=== PATIENT | male | born 1945 | race Caucasian/White ===

== ENCOUNTER → 2018-06-28 09:11 | Outpatient (CLI) | payer OTHER, SELFPAY ==
[2018-06-28 10:02] LABS: Appearance Urine UA CLEAR; Bilirubin Urine UA NEGATIVE (NEGATIVE); Color Urine UA YELLOW; Glucose Urine UA NEGATIVE (Negative); Ketones Urine UA NEGATIVE (NEGATIVE); Leukocyte Esterase Urine UA NEGATIVE (NEGATIVE); Nitrite Urine UA NEGATIVE (Negative); Occult Blood Urine UA NEGATIVE (Negative); Protein Urine UA NEGATIVE (Negative); Specific Gravity Urine UA 1.025 (1.000-1.035); Urobilinogen Urine UA 0.2 E.U./dL (0.2)
[2018-06-28 10:17] LABS: Add Manual Diff / Slide Review NO; Basophils Absolute Auto 0 /uL (0-100); Basophils Percent Auto 0.5 % (0-2); Eosinophils Absolute Auto 100 /uL (0-450); Hematocrit 49.2 % (41-53); Hemoglobin 16.2 g/dL (13.5-17.5); Lymphocytes Absolute Auto 1500 /uL (1100-4500); Lymphocytes Percent Auto 33.4 % (25-40); Mean Corpuscular HGB Conc 32.9 % (30-36); Mean Corpuscular Hemoglobin 30.3 PG (26-34); Mean Corpuscular Volume 92.2 fL (80-100); Monocytes Absolute Auto 600 /uL (0-900); Monocytes Percent Auto 13.1 % (3-14); Neutrophils Absolute Auto 2300 /uL (1500-7000); Platelet Count 238 X10^3/uL (150-400); Red Blood Cell Count 5.33 X10^6/uL (4.5-5.9); Red Cell Distribution Width 12.9 % (11.6-14.8); White Blood Cell Count 4.6 X10^3/uL (4.5-11.0)
[2018-06-28 10:24] LABS: Alanine Aminotransferase 33 IU/L (21-72); Albumin 4.3 g/dL (3.5-5.0); Albumin Globulin Ratio 1.4 (1.0-2.8); Alkaline Phosphatase 63 U/L (38-126); Aspartate Aminotransferase 33 IU/L (17-59); BUN Creatinine Ratio 13.3 (6-22); Bilirubin Total 0.7 mg/dL (0.2-1.3); Blood Urea Nitrogen 12 mg/dL (9-20); Calcium 8.9 mg/dL (8.4-10.2); Carbon Dioxide 29 mmol/L (22-32); Chloride 103 mmol/L (98-107); Cholesterol 204 mg/dL (140-199); Estimated Glomerular Filt Rate > 60.0 mL/min (>60); Glucose 91 mg/dL (80-110); HDL Cholesterol 51 mg/dL (40-60); HEMOLYSIS < 15 (0-50); LDL Cholesterol Calculated 107 mg/dL (<100); Potassium 4.5 mmol/L (3.4-5.1); Sodium 139 mmol/L (137-145); Total Protein 7.3 g/dL (6.3-8.2); Triglycerides 230 mg/dL (35-150)
[2018-06-28 10:47] LABS: Prostate Specific Antigen Scrn 10.3 ng/mL (0.1-4.0)
[2018-06-28 11:10] LABS: Thyroid Stimulating Hormone 0.98 uIU/mL (0.47-4.68)
== END ==
PROVIDERS: Visit Provider Family Medicine
DX: Z00.00 Encounter for general adult medical examination without abnormal findings (principal); N52.9 Male erectile dysfunction, unspecified
CPT/HCPCS: 36415; 80053; 80061; 81003; 84443; 85025; G0103

== ENCOUNTER → 2018-09-12 10:28 | Outpatient (CLI) | payer OTHER, SELFPAY ==
--- NOTE | 2018-09-12 10:30 | DI.MRI.S_ITS ---
PROCEDURE: MR KNEE LT WO CON INDICATIONS: Medial left knee pain TECHNIQUE: Noncontrast sagittal PD fast spin echo and T2 fast spin echo with fat saturation, sagittal 3-D FLASH with fat saturation; coronal T1 spin echo and PD fast spin echo with fat saturation, and axial PD fast spin echo with fat saturation through the knee. COMPARISON: None. FINDINGS: Image quality: Excellent. Menisci: Linear oblique high T2 signal intensity traverses the posterior horn medial meniscal free edge, demonstrating superior and inferior articular surface extension, indicating radial tearing. Lateral meniscus is intact. Cruciate ligaments: The anterior and posterior cruciate ligaments appear intact. Medial structures: The medial collateral ligament appears intact, but demonstrates mild surrounding T2 signal elevation. Visualized portions of the pes anserinus tendons appear normal. No abnormal bursal fluid. Lateral structures: The lateral collateral ligament, long and short heads of the biceps femoris tendon appear intact. The popliteus tendon appears normal. Iliotibial band appears normal. Anterior structures: The quadriceps and patellar tendons appear intact. Patellar alignment is normal. No femoral trochlear dysplasia or ventral trochlear prominence. No edema in the infrapatellar fat pad. Bones and cartilage: No bone marrow contusions or fractures. Mild tricompartmental periarticular osteophyte formation. Mild ill-defined degenerative marrow edema within the medial tibial plateau weightbearing aspect posteriorly is present. Moderate diffuse articular cartilage loss overlies the weightbearing aspect of the medial femoral condyle and medial tibial plateau. 5 mm diameter region of moderate grade articular cartilage loss overlies the medial patellar apex. Joint space: There is physiologic knee joint fluid. No Gonzalez's cyst. Normal appearing synovial plicae are incidentally noted. IMPRESSION: 1. Tricompartmental osteoarthritis with associated articular cartilage loss. 2. Medial meniscal tear. 3. MCL strain. Dictated by: Elayne Freeman M.D. on 09/12/2018 at 12:52 Approved by: Elayne Freeman M.D. on 09/12/2018 at 12:58
== END ==
PROVIDERS: Visit Provider Nurse Practitioner
DX: M17.12 Unilateral primary osteoarthritis, left knee (principal); S83.242A Other tear of medial meniscus, current injury, left knee, initial encounter; S83.412A Sprain of medial collateral ligament of left knee, initial encounter; M25.562 Pain in left knee
CPT/HCPCS: 73721

== ENCOUNTER 2018-10-25 10:53 | Outpatient (RCR) | payer OTHER, SELFPAY ==
--- NOTE | 2018-10-25 12:35 | PT.OIE ---
Current Diagnoses Other meniscus derangements, other medial meniscus, left knee (10/25/18) Pain in left knee (10/25/18) Past Medical History (Last Reviewed 05/08/18 @ 16:47 by Anju Manriquez DO) Chickenpox (Resolved ~1956) Colon polyps (Resolved 2014) Depression (Chronic 2009) Elevated PSA (Chronic 2015) Hernia (Resolved ~2013) Kidney stones (Resolved 11/2016) Osteoarthritis (Chronic 2013) Psoriasis (Chronic 1956) Psoriatic arthritis (Chronic Unknown) Past Surgical History (Last Updated 09/01/17 @ 09:50 by Li Crooks LPN) History of tonsillectomy (1967) Status post appendectomy (1955) Status post hernia repair (07/2014) Visit Care Team Role Provider Type Anju Manriquez DO Primary Care Provider Physician Specialty: [facility] Address: [address] [place] [address], [address], [address] Email: [email or web address] HORTENSIA Butler Attending Provider Advanced Chemistry Intern Specialty: [facility] Address: [address] [place] [address], [address] Email: [email or web address] Physical Therapy Initial Evaluation PT-OP-A Visit Information Start: 10/25/18 12:14 Freq: Status: Active Protocol: Document 10/25/18 11:15 DCW (Rec: 10/25/18 12:33 [facility] [id number]) Out-Patient Physical Therapy Visit Information Visit Information Visit Type Initial Evaluation Visit Start Time 11:15 Visit Stop Time 12:15 Total Visit Minutes 60 Visit Number 1 Number of [employer] WAFERS TESTER Visits 0 Evaluation Information Evaluation Date 10/25/18 PT-OP-B Current Condition Start: 10/25/18 12:14 Freq: Status: Active Protocol: Document 10/25/18 11:15 DCW (Rec: 10/25/18 12:33 [facility] [id number]) Current Condition History of Current Condition Onset Date 2 months Current Complaints Left meniscus tear History of Current Condition Pt is a 73 year old male presenting ~2 months s/p left meniscus tear. Pt reports that he was living on a friend's sailboat for about 3.5 weeks over the summer, and it was moored a little farther from the dock than it should have been, and he was just jumping down onto the dock every day, until he began to get a lot of pain in his left knee. An MRI revealed a left medial meniscus tear and MCL sprain. Pt reports he saw an orthopedic surgeon, who recommended no surgery due to OA in the area, but pt received a Cortisone injection . Pt now reports he has not had any pain in the past month , since the injection. Pt did notice a little discomfort trying to sleep last night with lower leg rotation, but if feeling better this morning . Pt notes he is in excellent physical condition, but is curious if PT could help him quicken his healing or he could improve his strength. Prior Treatments and Tests MRI: 1. Tricompartmental osteoarthritis with associated articular cartilage loss. 2. Medial meniscal tear. 3. MCL strain. per: Elayne Freeman M.D. on 07/2018 Prior Functional Status Baseline Function- ADL's Independent Baseline Function- Mobility Independent PT-OP-C Subjective Start: 10/25/18 12:14 Freq: Status: Active Protocol: Document 10/25/18 11:15 DCW (Rec: 10/25/18 12:33 DCW [id number]) OP-PT Subjective Patient Comments Patient Comments I haven't really had any pain since my cortisone injection. Patient Reported Progress Improving Patient Questionnaires Lower Extremity Functional Scale LEFS Score 72/80 = 90% LEFS Impairment 1 to 19% Impaired (Score 63-79 ) PT-OP-F Manual Assessment Start: 10/25/18 12:14 Freq: Status: Active Protocol: Document 10/25/18 11:15 DCW (Rec: 10/25/18 12:33 DCW [id number]) Manual Assessments Soft Tissue Assessment Soft Tissue Mobility Assessment No noticable edema, inflammation, redness, or tenderness to palpation PT-OP-K Range of Motion Start: 10/25/18 12:34 Freq: Status: Active Protocol: Document 10/25/18 11:15 DCW (Rec: 10/25/18 12:35 DCW [id number]) Knee Goniometric Range of Motion Knee Right Knee ROM WFL Yes Left Knee ROM WFL Yes PT-OP-L Special Tests Start: 10/25/18 12:14 Freq: Status: Active Protocol: Document 10/25/18 11:15 DCW (Rec: 10/25/18 12:33 DCW [id number]) Special Tests Knee Special Tests Varus- 0 Degrees Test Results Negative Posterior Draw Test Results Negative Anterior Draw Test Results Negative Valgus- 0 Degrees Test Results Mild discomfort along L MCL Patella Tap Test Results Negative PT-OP-M Strength Start: 10/25/18 12:34 Freq: Status: Active Protocol: Document 10/25/18 11:15 DCW (Rec: 10/25/18 12:35 DCW [id number]) Hip Strength Hip Manual Muscle Testing Right Flexion (L2) 5 Normal Extension (S1) 5 Normal Abduction 5 Normal Adduction 5 Normal External Rotation 5 Normal Internal Rotation 5 Normal Left Flexion (L2) 5 Normal Extension (S1) 5 Normal Abduction 5 Normal Adduction 5 Normal External Rotation 5 Normal Internal Rotation 5 Normal Knee Strength Knee Manual Muscle Testing Right Flexion (S2) 5 Normal Extension (L3) 5 Normal Left Flexion (S2) 5 Normal Extension (L3) 5 Normal PT-OP-T Assessment and Plan Start: 10/25/18 12:14 Freq: Status: Active Protocol: Document 10/25/18 11:15 DCW (Rec: 10/25/18 12:33 DCW [id number]) Physical Therapy Assessment Rehab Potential Rehabilitation Potential Poor Evaluation Complexity Number of Personal Factors/Comorbidities 0 Number of Body Systems Impaired 1-2 Clinical Presentation at Evaluation Stable Assessment Summary Assessment Pt displays no deficits or impairments at this time. Pt shows mild discomfort with valgus test at MCL, but no other testing revealed any other positive results. Due to the MRI, pt's meniscus was not tested, and he clearly has a tear, however it is not causing any difficulty for him at this time. There is no indication that pt would benefit from skilled PT. Pt admits that he is impatient, and he knows it will take some time. Pt's strength is 5/5 in all areas, ROM is completely WNL. Therapist was agreeable to not discharge patient quite yet, in case his cortisone injection wears off, and he suddenly as deficits and is limited in some activities due to pain. Physical Therapy Plan Frequency and Duration Frequency of Treatment 2x/Week Duration of Treatment 3 months Plan of Care Start Date 10/25/18 Plan of Care End Date 01/23/19 Therapeutic Interventions Therapeutic Interventions Aquatic Therapy,Home Exercise Program,Joint Mobilizations, Soft Tissue Mobilization, Therapeutic Exercises Next Visit Focus/Plan Next Note Type Treatment Note Next Visit Plan Retest for deficits and limitations if pt returns after his cortisone wears off
--- NOTE | 2018-10-25 12:36 | PT.OPPOC ---
Current Diagnoses Other meniscus derangements, other medial meniscus, left knee (10/25/18) Pain in left knee (10/25/18) Visit Care Team Role Provider Type Anju Manriquez DO Primary Care Provider Physician Specialty: [facility] Address: [address] [place] [address], [address], [address] Email: [email or web address] HORTENSIA Butler Attending Provider Advanced Document Scanner Specialty: [facility] Address: [address] [place] [address], [id number] Email: [email or web address] Plan Of Care PT-OP-T Assessment and Plan Start: 10/25/18 12:14 Freq: Status: Active Protocol: Document 10/25/18 11:15 DCW (Rec: 10/25/18 12:33 DCW [id number]) Physical Therapy Assessment Rehab Potential Rehabilitation Potential Poor Evaluation Complexity Number of Personal Factors/Comorbidities 0 Number of Body Systems Impaired 1-2 Clinical Presentation at Evaluation Stable Assessment Summary Assessment Pt displays no deficits or impairments at this time. Pt shows mild discomfort with valgus test at MCL, but no other testing revealed any other positive results. Due to the MRI, pt's meniscus was not tested, and he clearly has a tear, however it is not causing any difficulty for him at this time. There is no indication that pt would benefit from skilled PT. Pt admits that he is impatient, and he knows it will take some time. Pt's strength is 5/5 in all areas, ROM is completely WNL. Therapist was agreeable to not discharge patient quite yet, in case his cortisone injection wears off, and he suddenly as deficits and is limited in some activities due to pain. Physical Therapy Plan Frequency and Duration Frequency of Treatment 2x/Week Duration of Treatment 3 months Plan of Care Start Date 10/25/18 Plan of Care End Date 01/23/19 Therapeutic Interventions Therapeutic Interventions Aquatic Therapy,Home Exercise Program,Joint Mobilizations, Soft Tissue Mobilization, Therapeutic Exercises Next Visit Focus/Plan Next Note Type Treatment Note Next Visit Plan Retest for deficits and limitations if pt returns after his cortisone wears off Plan of Care Dates Plan of Care Start Date 10/25/18 Plan of Care End Date 01/23/19
--- NOTE | 2018-11-28 15:06 | PT.OPDS ---
Current Diagnoses Other meniscus derangements, other medial meniscus, left knee (10/25/18) Pain in left knee (10/25/18) Visit Care Team Role Provider Type Anju Manriquez DO Primary Care Provider Physician Specialty: [facility] Address: [address] [place] [address], [address], [place], [address] Email: [email or web address] HORTENSIA Butler Attending Provider Advanced Plant Controls Specialist Specialty: [facility] Address: [address] [place] [address], [address] Email: [email or web address] Visit Number Visit Number 1 Discharge Summary PT-OP-B Current Condition Start: 10/25/18 12:14 Freq: Status: Active Protocol: Document 10/25/18 11:15 DCW (Rec: 10/25/18 12:33 DCW [id number]) Current Condition History of Current Condition Onset Date 2 months Current Complaints Left meniscus tear History of Current Condition Pt is a 73 year old male presenting ~2 months s/p left meniscus tear. Pt reports that he was living on a friend's sailboat for about 3.5 weeks over the summer, and it was moored a little farther from the dock than it should have been, and he was just jumping down onto the dock every day, until he began to get a lot of pain in his left knee. An MRI revealed a left medial meniscus tear and MCL sprain. Pt reports he saw an orthopedic surgeon, who recommended no surgery due to OA in the area, but pt received a Cortisone injection . Pt now reports he has not had any pain in the past month , since the injection. Pt did notice a little discomfort trying to sleep last night with lower leg rotation, but if feeling better this morning . Pt notes he is in excellent physical condition, but is curious if PT could help him quicken his healing or he could improve his strength. Prior Treatments and Tests MRI: 1. Tricompartmental osteoarthritis with associated articular cartilage loss. 2. Medial meniscal tear. 3. MCL strain. per: Elayne Freeman M.D. on 07/2018 Prior Functional Status Baseline Function- ADL's Independent Baseline Function- Mobility Independent PT-OP-C Subjective Start: 10/25/18 12:14 Freq: Status: Active Protocol: Document 10/25/18 11:15 DCW (Rec: 10/25/18 12:33 DCW [id number]) OP-PT Subjective Patient Comments Patient Comments I haven't really had any pain since my cortisone injection. Patient Reported Progress Improving Patient Questionnaires Lower Extremity Functional Scale LEFS Score 72/80 = 90% LEFS Impairment 1 to 19% Impaired (Score 63-79 ) PT-OP-F Manual Assessment Start: 10/25/18 12:14 Freq: Status: Active Protocol: Document 10/25/18 11:15 DCW (Rec: 10/25/18 12:33 DCW [id number]) Manual Assessments Soft Tissue Assessment Soft Tissue Mobility Assessment No noticable edema, inflammation, redness, or tenderness to palpation PT-OP-K Range of Motion Start: 10/25/18 12:34 Freq: Status: Active Protocol: Document 10/25/18 11:15 DCW (Rec: 10/25/18 12:35 DCW [id number]) Knee Goniometric Range of Motion Knee Right Knee ROM WFL Yes Left Knee ROM WFL Yes PT-OP-L Special Tests Start: 10/25/18 12:14 Freq: Status: Active Protocol: Document 10/25/18 11:15 DCW (Rec: 10/25/18 12:33 DCW [id number]) Special Tests Knee Special Tests Varus- 0 Degrees Test Results Negative Posterior Draw Test Results Negative Anterior Draw Test Results Negative Valgus- 0 Degrees Test Results Mild discomfort along L MCL Patella Tap Test Results Negative PT-OP-M Strength Start: 10/25/18 12:34 Freq: Status: Active Protocol: Document 10/25/18 11:15 DCW (Rec: 10/25/18 12:35 DCW [id number]) Hip Strength Hip Manual Muscle Testing Right Flexion (L2) 5 Normal Extension (S1) 5 Normal Abduction 5 Normal Adduction 5 Normal External Rotation 5 Normal Internal Rotation 5 Normal Left Flexion (L2) 5 Normal Extension (S1) 5 Normal Abduction 5 Normal Adduction 5 Normal External Rotation 5 Normal Internal Rotation 5 Normal Knee Strength Knee Manual Muscle Testing Right Flexion (S2) 5 Normal Extension (L3) 5 Normal Left Flexion (S2) 5 Normal Extension (L3) 5 Normal PT-OP-T Assessment and Plan Start: 10/25/18 12:14 Freq: Status: Active Protocol: Document 11/28/18 15:04 DCW (Rec: 11/28/18 15:06 [facility] [id number]) Physical Therapy Assessment Assessment Summary Assessment At pt's initial evaluation, he demonstrated no impairments, deficits, or problems of any kind. Therapist was agreeable to keep his chart open for one month, on the off-chance that he ran into any problems or had questions/concerns. Pt has now not been seen in more than one month, and will be discharged at this time. Physical Therapy Plan Discharge Physical Therapy Discharge Reasons No Longer Attending PT Next Visit Focus/Plan Next Note Type Discharge Summary
== END 2018-12-06 16:27 | disposition home or self-care (01) ==
LOC: PHYS 10:53
PROVIDERS: PCP Family Medicine; Visit Provider Nurse Practitioner
DX: M25.562 Pain in left knee (principal); M23.332 Other meniscus derangements, other medial meniscus, left knee
CPT/HCPCS: 97161; 97535

== ENCOUNTER → 2019-06-13 10:48 | Outpatient (CLI) | payer OTHER, SELFPAY ==
[2019-06-14 07:44] LABS: PSA Free % 21.8 % (.); PSA, Total 8.7 ng/mL (0.0-4.0)
== END ==
PROVIDERS: PCP Family Medicine; Referring Provider Physician Assistant; Visit Provider Physician Assistant
DX: R97.20 Elevated prostate specific antigen [PSA] (principal); R68.82 Decreased libido
CPT/HCPCS: 36415; 84153; 84154

== ENCOUNTER 2019-08-28 11:38 | Emergency (ER) | payer OTHER, SELFPAY ==
[2019-08-28 12:00] VITALS: BP 173/85; PULSE 61; RESP 18; TEMP 36.7; O2SAT 99; BMI 28.0
[2019-08-28 13:35] VITALS: BP 185/90; PULSE 58; RESP 14; O2SAT 98
--- NOTE | 2019-08-28 13:43 | ED.LOWEXIN ---
HPI - Extremity Injury (Lower) <HORTENSIA De Souza - Last Filed: 08/28/19 15:21> General Chief Complaint: Extremity Injury, Lower Stated Complaint: Drop Barrel of Cadillac Chain on Rt Toe Time Seen by Provider: 08/28/19 12:51 Source: patient Mode of arrival: Ambulatory Limitations: no limitations History of Present Illness HPI Narrative: 74-year-old male presents to the emergency department for right 1st toe pain. Patient states he was moving a barrel and drop it on his right big toe. He states there was a large anger chain inside which weighed approximately few 100 lb. Patient states he had some pain initially which resolved with ice and elevation. He has been able to walk on it without significant pain. He noticed a slight amount of increasing pain today. Patient denies throbbing or pain. Patient denies any other injuries such as foot pain, ankle pain, head trauma, fevers, chills, nausea, vomiting, diarrhea, or any other concerns. Patient refused x-ray. Related Data Home Medications Medication Instructions Recorded Confirmed omega 0-sth-fyy-fish oil [Fish Oil] 1,000 mg PO #0 11/26/16 03/30/19 cholecalciferol (vitamin D3) #0 05/20/17 03/30/19 magnesium #0 05/20/17 03/30/19 L-citruline 500 mg PO DAILY 05/08/18 03/30/19 Panex Ginseng Root Extract 300 mg PO DAILY 05/08/18 03/30/19 jeff extract 500 mg capsule 1,500 cap PO DAILY cap 05/08/18 03/30/19 red yeast rice 600 mg capsule 600 mg PO DAILY 05/08/18 03/30/19 Previous Rx's Medication Instructions Recorded pneumoc 13-constantine conj-dip cr(PF) 0.5 0.5 ml IM ONCE #0.5 ml 05/08/18 mL IM syringe sildenafil 100 mg tablet 100 mg PO DAILY PRN #90 tab 05/08/18 tadalafil 20 mg tablet 20 mg PO DAILY PRN #90 tab 05/08/18 amoxicillin 875 mg-potassium 1 tab PO BID #20 tab 03/30/19 clavulanate 125 mg tablet Allergies Allergy/AdvReac Type Severity Reaction Status Date / Time No Known Allergies Allergy Uncoded 03/30/19 11:05 Review of Systems <HORTENSIA De Souza - Last Filed: 08/28/19 15:21> Review of Systems Narrative: REVIEW OF SYSTEMS: GENERAL: Denies fever or chills. HENT: No head trauma. EYES: No double vision or vision loss. CARDIOVASCULAR: No chest pain. RESPIRATORY: No shortness of breath or cough. GASTROINTESTINAL: No nausea, vomiting, diarrhea, or constipation. MUSCULOSKELETAL: Complains of R 1st toe pain, see HPI. INTEGUMENTARY: No rash. NEURO: No numbness, tingling. PSYCH: No behavior or mood changes. Patient History <HORTENSIA De Souza - Last Filed: 08/28/19 15:21> Medical History Chickenpox (Resolved ~1956) Colon polyps (Resolved 2014) Depression (Chronic 2009) Elevated PSA (Chronic 2015) Hernia (Resolved ~2013) Kidney stones (Resolved 11/2016) Osteoarthritis (Chronic 2013) Psoriasis (Chronic 1956) Psoriatic arthritis (Chronic Unknown) Sinusitis (Acute) Surgical History History of tonsillectomy (1967) Status post appendectomy (1955) Status post hernia repair (07/2014) Family History Father Hyperlipidemia Mother Cancer Social History Smoking Status: Never smoker Smoking Status: Never smoker alcohol intake frequency: 0-2 drinks per day Alcohol type: wine Substance Use Type: does not use Exam <HORTENSIA De Souza - Last Filed: 08/28/19 15:21> Initial Vital Signs Initial Vital Signs: Vital Signs Temperature 98.1 F 08/28/19 12:00 Pulse Rate 61 08/28/19 12:00 Respiratory Rate 18 08/28/19 12:00 Blood Pressure 173/85 H 08/28/19 12:00 Pulse Oximetry 99 08/28/19 12:00 PHYSICAL EXAMINATION: GENERAL: Well groomed, alert, and cooperative. Answers questions promptly and appropriately. Vital signs noted. HENT: Normocephalic, atraumatic. EYES: Symmetrical, sclera white, no periorbital swelling. CARDIOVASCULAR: Regular rate. RESPIRATORY: Normal respiratory rate, trachea midline, airway patent. No stridor, nasal flaring or accessory muscle use. MUSCULOSKELETAL: Mild swelling and ecchymosis noted to tip of right 1st toe. Very minimal tenderness. No pain with palpation of nail, large subungual hematoma without pain. No pain with palpation of foot or ankle. Normal gait and coordination. Equal tone and mass bilaterally. EXTREMITIES: CMS intact. Pedal pulses 2+ and intact bilaterally. SKIN: Warm, dry, soft, appropriate color for ethnicity. No lesions, rashes, or wounds. NEURO: Alert and Oriented X 3. No sensory deficits. PSYCH: Appropriate affect and mood. <Justus Fernandez MD - Last Filed: 08/28/19 18:49> Initial Vital Signs Initial Vital Signs: Vital Signs Temperature 98.1 F 08/28/19 12:00 Pulse Rate 61 08/28/19 12:00 Respiratory Rate 18 08/28/19 12:00 Blood Pressure 173/85 H 08/28/19 12:00 Pulse Oximetry 99 08/28/19 12:00 Course <HORTENSIA De Souza - Last Filed: 08/28/19 15:21> Course Course Narrative: Discussed with patient that x-rays recommended, declined at this time. Vital Signs Vital signs: Vital Signs - 8 hr 08/28/19 12:00 08/28/19 13:35 Temperature 98.1 F Pulse Rate 61 58 L Respiratory Rate 18 14 Blood Pressure 173/85 H 185/90 H Pulse Oximetry 99 98 <Justus Fernandez MD - Last Filed: 08/28/19 18:49> Vital Signs Vital signs: Vital Signs - 8 hr 08/28/19 12:00 08/28/19 13:35 Temperature 98.1 F Pulse Rate 61 58 L Respiratory Rate 18 14 Blood Pressure 173/85 H 185/90 H Pulse Oximetry 99 98 MDM - Extremity Injury (Lower) <HORTENSIA De Souza - Last Filed: 08/28/19 15:21> Medical Records Attestation: I reviewed the patient's medical records. Lab Data Attestation: I reviewed the patient's lab results. [facility] Narrative Medical decision making narrative: 74-year-old male presents emergency department for toe pain after dropping an object, toe. Patient refused x-ray multiple times. Denies significant pain, denies pain with significant pressure on nail therefore trepidation not indicated. Additionally, it looks like some of the fluid exudates from the nail. Patient was given strict return precautions for new or worsening symptoms. Patient could find care verbalized understanding. Discharge Plan Departure Patient Disposition: Home Clinical Impression: Crush injury of toe Qualifiers: Encounter type: initial encounter Laterality: right Qualified Code(s): S97.101A - Crushing injury of unspecified right toe(s), initial encounter Discharge Date/Time: 08/28/19 13:36 Instructions: DI for Subungual Hematoma Activity Restrictions/Additional Instructions: Thank you for entrusting me with your care today. As discussed, you declined an x-ray today to rule out any fractures as your pain has been mild. It is possible that you may lose your nail due to the trauma. Please keep your toe protected in stiff she used, monitor the toe for signs of infection such as pus, increased redness, or increased pain--please be evaluated immediately if these symptoms occur. Protect your toe if your nail does fall off. Watch for signs of an ingrown toenail. Follow-up with your primary care provider in 1-2 weeks for further evaluation if symptoms continue Return emergency department for any new or worsening symptoms.. Prescriptions: No Action red yeast rice 600 mg capsule 600 mg PO DAILY RF: 0 jeff extract 500 mg capsule 1,500 cap PO DAILY RF: 0 L-citruline 500 mg PO DAILY RF: 0 Panex Ginseng Root Extract 300 mg PO DAILY RF: 0 Prevnar 13 (PF) 0.5 mL syringe 0.5 ml IM ONCE Qty: 0.5 RF: 0 sildenafil [Viagra] 100 mg tablet 100 mg PO DAILY PRN (Reason: sexual activity) Qty: 90 RF: 0 tadalafil [Cialis] 20 mg tablet 20 mg PO DAILY PRN (Reason: sexual activity) Qty: 90 RF: 0 amoxicillin-pot clavulanate [Augmentin] 875-125 mg tablet 1 tab PO BID Qty: 20 RF: 0 omega 9-yzl-uif-fish oil [Fish Oil] 1,000 MG capsule 1,000 mg PO Qty: 0 RF: 0 magnesium 200 MG tablet Qty: 0 RF: 0 cholecalciferol (vitamin D3) 5,000 UNIT capsule Qty: 0 RF: 0 Referrals: Declan,Anju, DO [Primary Care Provider] -
== END 2019-08-28 13:36 | disposition home or self-care (01) ==
PROVIDERS: Emergency Provider Nurse Practitioner; PCP Family Medicine
DX: S97.101A Crushing injury of unspecified right toe(s), initial encounter (principal); W22.8XXA Striking against or struck by other objects, initial encounter
CPT/HCPCS: 99281

== ENCOUNTER → 2019-09-28 11:33 | Outpatient (CLI) | payer OTHER, SELFPAY ==
--- NOTE | 2019-09-28 12:26 | DI.CT.S_ITS ---
PROCEDURE: CT CHEST ABD PEL W CON INDICATIONS: Malignant neoplasm of prostate TECHNIQUE: After the administration of oral and intravenous contrast, 5 mm thick sections acquired from the lung apices to the symphysis. 5 mm coronal and sagittal reformats were performed, with additional 7 mm coronal MIP reformats through the lungs. For radiation dose reduction, the following was used: automated exposure control, adjustment of mA and/or kV according to patient size. COMPARISON: [facility], CT, KIDNEY/ URETER/BLADDER, 11/26/2016, 18:09. FINDINGS: Image quality: Excellent. CHEST: Lungs and pleura: No acute airspace opacities. No mass or significant pulmonary nodules. A few small cysts in the left lower lobe. No pleural effusions or pneumothorax. Central and peripheral airways appear patent and normal in caliber. Mediastinum: Heart size is normal. No pericardial effusion. No mediastinal or hilar adenopathy by size criteria. Thoracic aorta and central pulmonary arteries are normal in size. Esophagus is normal in caliber. No hiatal hernia. Chest wall: No axillary or supraclavicular adenopathy by size criteria. Thyroid gland is unremarkable. ABDOMEN: Solid organs: Liver is normal in size and enhancement. Gallbladder is unremarkable. Biliary system is non dilated. Pancreas enhances normally. Spleen is normal in size and enhancement. No adrenal nodules. Kidneys demonstrate normal size and enhancement, without hydronephrosis. No kidney stone seen. Peritoneum and bowel: No small bowel obstruction. Thickening of the distal sigmoid colon which appears similar to the prior exam from 2017. Diverticulosis. No diverticulitis. Appendix is not identified. No free fluid. No pneumoperitoneum. Nodes and vessels: No retroperitoneal or mesenteric adenopathy by size criteria. Aorta and inferior vena cava are normal in size. Miscellaneous: No ventral hernias. PELVIS: Genitourinary: Bladder is unremarkable. Prostatomegaly. Subtle asymmetric contour abnormality at the right mid gland/apex. Small varicosities in the left pelvis. Right internal iliac vein is somewhat patulous. Bilateral hydroceles which were also present in 2017. Miscellaneous: Small fat containing left inguinal hernia. No adenopathy identified. Bones: No suspicious bony lesions. No sclerotic osseous lesion. No vertebral body compression fractures. IMPRESSION: 1. No metastatic disease identified. No enlarged adenopathy. 2. No sclerotic osseous lesions. 3. Again seen is thickening of the distal sigmoid colon. This could be due to prior episodes of diverticulitis. Recommend clinical correlation. If clinically indicated further evaluation with colonoscopy could be performed. 4. Diverticulosis without diverticulitis. No free fluid. 5. Lungs are clear. Dictated by: Bryan Mckeon M.D. on 09/28/2019 at 13:47 Approved by: Bryan Mckeon M.D. on 09/28/2019 at 13:59
== END ==
PROVIDERS: PCP Family Medicine; Referring Provider Urology; Visit Provider Urology
DX: C61 Malignant neoplasm of prostate (principal); K57.90 Diverticulosis of intestine, part unspecified, without perforation or abscess without bleeding
CPT/HCPCS: 71260; 74177; Q9967

== ENCOUNTER → 2020-01-31 09:43 | Outpatient (CLI) | payer OTHER, MEDICARE, SELFPAY ==
[2020-01-31 10:09] LABS: Hemoglobin A1C% w Est Avg Glu 5.4 % (4.0-6.0)
[2020-01-31 10:13] LABS: Cholesterol 239 mg/dL (140-199); HDL Cholesterol 34 mg/dL (40-60); LDL Cholesterol Calculated 144 mg/dL (<100); Triglycerides 303 mg/dL (35-150)
[2020-01-31 10:45] LABS: Prostate Specific Antigen Scrn 9.15 ng/mL (0.1-4.0)
[2020-01-31 11:01] LABS: HIV 1 & 2 Ab/Ag 4th Gen Combo NEGATIVE (NEGATIVE)
[2020-01-31 11:29] LABS: Urine N gonorrhoeae NOT DETECTED
[2020-01-31 11:30] LABS: Urine Chlamydia NOT DETECTED
[2020-02-01 04:15] LABS: HBsAg Screen Negative (Negative); Hepatitis A Antibody IgM Negative (Negative); Hepatitis B Core Antibody IgM Negative (Negative); Hepatitis C Antibody <0.1 s/co ratio (0.0-0.9)
[2020-02-01 06:07] LABS: RPR Screen Non Reactive (Non Reactive)
== END ==
PROVIDERS: PCP Family Medicine; Referring Provider Family Medicine; Visit Provider Family Medicine
DX: E78.5 Hyperlipidemia, unspecified (principal); C61 Malignant neoplasm of prostate; Z12.5 Encounter for screening for malignant neoplasm of prostate
CPT/HCPCS: 36415; 80061; 80074; 83036; 86592; 87389; 87491; 87591; G0103

== ENCOUNTER → 2020-02-06 08:02 | Outpatient (CLI) | payer OTHER, MEDICARE, SELFPAY ==
--- NOTE | 2020-02-06 08:06 | DI.US.S_ITS ---
PROCEDURE: US ABDOMEN LIMITED INDICATIONS: LEFT INGUINAL BULGING TECHNIQUE: Real-time scanning was performed of the abdominal and retroperitoneal organs, with image documentation. COMPARISON: [facility], CT, CT CHEST ABD PEL W CON, 09/28/2019, 12:23. FINDINGS: There is a reducible left inguinal fat containing hernia. IMPRESSION: Reducible fat containing left inguinal hernia. Dictated by: Sheryl Vásquez M.D. on 02/06/2020 at 15:02 Approved by: Sheryl Vásquez M.D. on 02/06/2020 at 15:04
== END ==
PROVIDERS: PCP Family Medicine; Referring Provider Family Medicine; Visit Provider Family Medicine
DX: K40.90 Unilateral inguinal hernia, without obstruction or gangrene, not specified as recurrent (principal)
CPT/HCPCS: 76705

== ENCOUNTER → 2020-03-06 11:00 | Outpatient (CLI) | payer MEDICARE, SELFPAY ==
[2020-03-06] MEDS: COVID-19 VACC #1, MRNA(MOD) 100 MCG/0.5 ML VIAL IM (11:05)
== END ==
PROVIDERS: PCP Family Medicine; Visit Provider Internal Medicine
DX: Z23 Encounter for immunization (principal)
CPT/HCPCS: 0011A; 91301

== ENCOUNTER → 2020-04-03 11:11 | Outpatient (CLI) | payer MEDICARE, SELFPAY ==
[2020-04-03] MEDS: COVID-19 VACC #2, MRNA(MOD) 100 MCG/0.5 ML VIAL IM (11:13)
== END ==
PROVIDERS: PCP Family Medicine; Visit Provider Internal Medicine
DX: Z23 Encounter for immunization (principal)
CPT/HCPCS: 0012A; 91301

== ENCOUNTER → 2020-08-14 09:39 | Outpatient (CLI) | payer MEDICARE, OTHER, SELFPAY ==
[2020-08-14 11:47] LABS: Alanine Aminotransferase 36 IU/L (<50); Albumin 4.1 g/dL (3.5-5.0); Albumin Globulin Ratio 1.5 (1.0-2.8); Alkaline Phosphatase 53 U/L (38-126); Aspartate Aminotransferase 35 IU/L (17-59); BUN Creatinine Ratio 18.8 (6-22); Bilirubin Total 0.7 mg/dL (0.2-1.3); Blood Urea Nitrogen 15 mg/dL (9-20); Calcium 9.4 mg/dL (8.4-10.2); Carbon Dioxide 26 mmol/L (22-32); Chloride 108 mmol/L (98-107); Cholesterol 157 mg/dL (140-199); Estimated Glomerular Filt Rate > 60.0 mL/min (>60); Globulin 2.7 g/dL (1.7-4.1); Glucose 111 mg/dL (80-110); HDL Cholesterol 53 mg/dL (40-60); HEMOLYSIS < 15 (0-50); LDL Cholesterol Calculated 79 mg/dL (<100); Potassium 4.5 mmol/L (3.4-5.1); Sodium 139 mmol/L (137-145); Total Protein 6.8 g/dL (6.3-8.2); Triglycerides 127 mg/dL (35-150)
[2020-08-14 12:16] LABS: Prostate Specific Antigen Scrn 7.89 ng/mL (0.1-4.0)
[2020-08-21 11:59] LABS: Percent Free Testosterone 3.79 % (1.50-4.20); Testosterone Free 16.63 ng/dL (5.00-21.00); Testosterone Total 438.9 ng/dL (264.0-916.0)
== END ==
PROVIDERS: PCP Family Medicine; Referring Provider Family Medicine; Visit Provider Family Medicine
DX: C61 Malignant neoplasm of prostate (principal); E78.5 Hyperlipidemia, unspecified; Z12.5 Encounter for screening for malignant neoplasm of prostate; N20.0 Calculus of kidney; N52.9 Male erectile dysfunction, unspecified
CPT/HCPCS: 36415; 80053; 80061; 84402; 84403; G0103

== ENCOUNTER → 2020-08-26 15:00 | Outpatient (CLI) | payer MEDICARE, OTHER, SELFPAY ==
--- NOTE | 2020-08-26 15:05 | DI.RAD.S_ITS ---
PROCEDURE: XR WRIST LT MIN 3V INDICATIONS: left wrist pain TECHNIQUE: 4 views of the wrist were acquired. COMPARISON: None. FINDINGS: Bones: No fractures or dislocations. No suspicious bony lesions. Scaphoid view: No trauma. Soft tissues: No suspicious soft tissue calcifications. IMPRESSION: No trauma found. Dictated by: Ramin Sheets M.D. on 08/26/2020 at 16:35 Approved by: Ramin Sheets M.D. on 08/26/2020 at 16:35
== END ==
PROVIDERS: PCP Family Medicine; Referring Provider Family Medicine; Visit Provider Family Medicine
DX: S63.502A Unspecified sprain of left wrist, initial encounter (principal); M25.532 Pain in left wrist; X58.XXXA Exposure to other specified factors, initial encounter
CPT/HCPCS: 73110

== ENCOUNTER → 2020-10-08 08:43 | Outpatient (CLI) | payer MEDICARE, OTHER, SELFPAY ==
[2020-10-08 13:37] LABS: COVID19 -Nasal RAPID Negative (Negative)
== END ==
PROVIDERS: PCP Family Medicine; Visit Provider Nurse Practitioner
DX: Z01.812 Encounter for preprocedural laboratory examination (principal); Z20.822 Contact with and (suspected) exposure to COVID-19; R05 Cough
CPT/HCPCS: 87635

== ENCOUNTER 2020-11-27 14:15 | Outpatient (RCR) | payer MEDICARE, OTHER, SELFPAY ==
--- NOTE | 2020-09-29 16:55 | PT.OIE ---
Current Diagnoses Carpal tunnel syndrome, left upper limb (09/29/20) Pain in left wrist (09/29/20) Past Medical History (Last Updated 08/21/20 @ 11:05 by Justin Foley MD) Carpal tunnel syndrome of left wrist Chickenpox (~1956) Colon polyps (2014) Depression (2010) Elevated PSA (2015) Hernia (~2013) Kidney stones (11/2016) Osteoarthritis (2013) Prostate cancer Psoriasis (1956) Psoriatic arthritis (Unknown) Sinusitis Past Surgical History (Last Reviewed 01/31/20 @ 09:07 by Justin Foley MD) History of tonsillectomy (1967) Status post appendectomy (1955) Status post hernia repair (07/2014) Visit Care Team Role Provider Type Justin Foley MD Attending Provider Physician Primary Care Provider Referring Provider Specialty: Family Practice Address: [address] [place] [address] Email: [email or web address] Physical Therapy Initial Evaluation PT-OP-A Visit Information Start: 09/26/20 11:54 Freq: Status: Active Protocol: Document 09/29/20 14:28 LRN (Rec: 09/29/20 16:46 LRN [id number]) Out-Patient Physical Therapy Visit Information Visit Information Visit Type Initial Evaluation Visit Start Time 14:28 Visit Stop Time 15:26 Total Visit Minutes 58 Visit Number 1 Evaluation Information Evaluation Date 09/29/20 Precautions Precautions History of depression History of sensation changes in R hand after nighttime sleeping. Osteoarthritis of hands. 2 Prostate Biopsies, both benign (09/2019, 07/2020). PT-OP-B Current Condition Start: 09/26/20 11:54 Freq: Status: Active Protocol: Document 09/29/20 14:28 LRN (Rec: 09/29/20 16:46 LRN [id number]) Current Condition History of Current Condition Onset Date 08/10/20 Current Complaints Can't feel his hand. History of Current Condition L hand was almost severed. L hand was compressed by metal by a boat raz assembly pressing his hand into his boat. 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 No broken bones. Was able to move hand, no blood, only couldn't feel hand but could tell he could move his L hand. Has been elevating his hand, has been using cold pack for swelling, and heat to stimulate blood flow. Went to see his doctor a couple weeks after injury. Has been doing hand yoga, keeping his hands/ fingers moving. His L little finger and ring finger was numb, now he can feel his little finger and the lateral side of his ring finger. Index & middle finger is numb, thumb lateral side is starting to tingle, medial and thumb pad side is numb. Has a history of numbness of R hand while sleeping that has worsened since injury. Now feels under the biceps is burning. Prior Treatments and Tests None. Future Testing and Treatments Planned None Treatment Goals Patient/Caregiver Goals Pt goal: is to find out what he should be doing to help progress his L hand to normal. Learn what specific things he should be doing that he is not doing to speed up healing process. Improve ability to use his fingers to zip up pants and button his shirt. 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 Current Functional Impairments (Reported) Functional Limitations- ADL's Can't zip pants or button shirt because can't feel index finger (no pain in fingers). Limited with anything that requires use of thumb/ forefinger (brushing teeth) is awkward. Functional Limitations- Work/School Working FT, awkward with doing detail work, like writing ( can write but not able to feel ). Personal Factors Other Personal Factors That May Effect Depression Therapy/Recovery History of sensation changes in R hand after nighttime sleeping. Osteoarthritis of hands. 2 Prostate Biopsies, both benign (09/2019, 07/2020). PT-OP-C Subjective Start: 09/26/20 11:54 Freq: Status: Active Protocol: Document 09/29/20 14:28 LRN (Rec: 09/29/20 16:46 LRN [id number]) Patient Questionnaires Quick Dash- Upper Extremity Quick Dash UE Score 27.27 Quick Dash UE Impairment 20 to 39% Impaired (Score 20- 39) PT-OP-H Neuro Start: 09/26/20 11:54 Freq: Status: Active Protocol: Document 09/29/20 14:28 LRN (Rec: 09/29/20 16:46 LRN [id number]) Sensation Evaluation Gross Sensation Gross Sensation Left UE Impaired Sensation Description Numbness,Tingling Comments Summary Comments See Pain assessment Grid that pt noted decreased sensation vs numbness (sectioins of the median nerve distribution). PT-OP-J Posture/Palpation/Skin Start: 09/26/20 11:54 Freq: Status: Active Protocol: Document 09/29/20 14:28 LRN (Rec: 09/29/20 16:46 LRN [id number]) Posture Evaluation Comments Posture Comments Forward head, Winged scapula bilaterally, L shoulder rolled forward and elevated, bilaterally arms internally rotated. Palpation Assessment Location L wrist Palpation Location L wrist Palpation Findings Edema PT-OP-K Range of Motion Start: 09/26/20 11:54 Freq: Status: Active Protocol: Document 09/29/20 14:28 LRN (Rec: 09/29/20 16:46 LRN [id number]) Wrist Goniometric Range of Motion Wrist Right Wrist ROM WFL Yes Flexion Active (degrees) 70 Extension Active (degrees) 53 Ulnar Deviation Active (degrees) 28 Radial Deviation Active (degrees) 10 Left Wrist ROM WFL No Flexion Active (degrees) 70 Extension Active (degrees) 42 Ulnar Deviation Active (degrees) 17 Radial Deviation Active (degrees) 8 Finger Goniometric Range of Motion Finger Right Second MCP Flexion Active (degrees) 56 PIP Flexion Active (degrees) 96 DIP Flexion Active (70-90 degrees) 50 L Left Second MCP Flexion Active (degrees) 62 PIP Flexion Active (degrees) 88 DIP Flexion Active (70-90 degrees) 38 L Finger ROM Limitations Comments Opposition of little finger to medial side on L hand. L hand: Touch thumb to palm , yes on Right to 4th finger, Left to middle finger. PT-OP-L Special Tests Start: 09/26/20 11:54 Freq: Status: Active Protocol: Document 09/29/20 14:28 LRN (Rec: 09/29/20 16:46 LRN [id number]) Special Tests Wrist/Hand Special Tests Phalens Test Results L wrist unknown Comments L hand numb with no change in numbness Tinels Test Results L wrist is positive Comments Tingling onset PT-OP-M Strength Start: 09/26/20 11:54 Freq: Status: Active Protocol: Document 09/29/20 14:28 LRN (Rec: 09/29/20 16:46 LRN [id number]) Elbow/Forearm Strength Elbow and Forearm Manual Muscle Testing Right Comments Generally 5/5 Left Comments Generally 5/5 Wrist Strength Wrist Manual Muscle Testing Right Comments Generally 5/5 Left Comments Generally 5/5 as tested within pt's available range. Finger/Thumb Strength Finger Manual Muscle Testing Right Second Adduction 5 Normal Left Second Adduction 3 Fair Right Thumb Comments Opposition to all finger is normal. Left Thumb Comments Opposition to little finger is 3/5, otherwise 5/5 Hand Electrical Tester Battery/Pinch Strength Hand Dominance Hand Dominance Left Hand Strength Right Comments Electrical Tester Battery strength in kgs: 35, 32, 32 (avg is 33 kg) Left Comments Electrical Tester Battery strength in kgs: 26, 28, 28 (avg is 27 kg) PT-OP-Q Treatments Start: 09/26/20 11:54 Freq: Status: Active Protocol: Document 09/29/20 14:28 LRN (Rec: 09/29/20 16:46 LRN [id number]) Therapeutic Exercises Sitting Exercises Opposition Sitting Exercise Name Opposition for coordination/ speed Side bilateral Reps/Minutes 2' Comments Pt slower on L hand, and not able to touch pad of little finger (side only) Little finger flex Sitting Exercise Name Little finger flex Side left Reps/Minutes 3' Comments Training for correct performance and monitoring for symptoms L wrist ext stretch Sitting Exercise Name L wrist ext Side left Reps/Minutes 4' Comments Extra time for determining max stretch and proper stretch ( no bouncing) Self-Care/Home Management Treatment Education Other Education Discussed at length result of evaluation and answered questions regarding self care, injury and prognosis. Discussed goals and plan of care, with pt agreeable. Activities Self-Care/Home Management Activities Issued & reviewed self care: Edema management with RICE program without use of compression. Edema management using hot/cold technique PT-OP-T Assessment and Plan Start: 09/26/20 11:54 Freq: Status: Active Protocol: Document 09/29/20 14:28 LRN (Rec: 09/29/20 16:46 LRN [id number]) Physical Therapy Assessment Rehab Potential Rehabilitation Potential Excellent Evaluation Complexity Number of Personal Factors/Comorbidities 3 or More Number of Body Systems Impaired 4 or More Clinical Presentation at Evaluation Evolving Impairments Impairments Activity Tolerance, Coordination,Edema,ROM, Sensation,Strength Goals Three Impairment Decreased L hand and finger strength (see below) Impairment UE QuickDASH score of 27.27 ( 20-39% impaired) Electrical Tester Battery strength (kgs with 3 trials): 26, 28, 28 left; 35, 32, 32 right. Index finger AD: 3/5 left, 5/ 5 right. Opposition: thumb and little finger: 2+/5 left, 5/5 right. Short Term Goal (STG) Improve L hand strength with improved function per UE QuickDASH score of 19 or less with 1-19% impairment. STG Duration 10/27/20 Clerk Manager Goal (LTG) Pt able to zip pants or button shirt. LTG Duration 11/28/20 Two Impairment Decreased L wrist, index finger (PIP/DIP) AROM Impairment AROM: Wrist (in deg's): Flex: 70 L, 70 R; Ext: 42 L, 53 R; UD: 17 L, 28 R; RD: 8 L, 10 R. Index finger active flexion ( in deg's): PIP jt: 88 left, 96 right DIP jt: 38 left, 50 right. Short Term Goal (STG) Pt will be able to hold his toothbrush to brush his teeth with ease (not awkward). STG Duration 10/27/20 Clerk Manager Goal (LTG) Improve L wrist & index finger AROM LTG Duration 11/28/20 One Impairment Lacks appropriate self care HEP Short Term Goal (STG) Pt will be independent in wrist (ext, UD/RD) and finger (flex, ext, AB/AD, opposition) AROM ex's. STG Duration 10/27/20 Snf Goal (LTG) Pt will be independent in a self care HEP (AROM & strengthening ex's for the L forearm, wrist, fingers. LTG Duration 11/28/20 Assessment Summary Assessment Pt present with conflicting L carpel tunnel, special testing results, of + Tinel Sign, but negatve Phalen sign. He has a palpable strong wrist pulse indicating good circulation and denies loss of sensation between hot/cold. He has decreased sensation in the L hand to soft touch in some areaa of the median nerve distribution. Loss of sensation to soft touch most is mainly at the L index and middle finger on the archer surface of the entire digits, and in the palm below the same digits. He has no sensation to soft touch on the dorsal side of the DIP jts distally of the L middle and index finger. He also has numbness to soft touch in the palmar aspect of the L thumb. He has had tingling sensation and progressive return of sensation in the L ring and little finger. His progress may be hindered by his lack of sensation and his lack of ability to identify limitations with wrist/finger stretches and exercise tolerance. The pt will probably need a nighttime wrist splint to promote healing and to minimize wrist flexion while sleeping at night. The pt also presents with decreased L wrist AROM and visible atrophy of his left hypothenar and forearm muscles. 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 The pt will benefit from skilled physical therapy to improve L wrist/finger mobility and strengthening and forearm strengthening. If the pt is not able to progress in L hand strengthening I would recommend EMG assessment. Physical Therapy Plan Frequency and Duration Frequency of Treatment 2x/Week Plan of Care Start Date 09/29/20 Plan of Care End Date 11/28/20 Therapeutic Interventions Therapeutic Interventions Home Exercise Program,Joint Mobilizations,Manual Therapy, Patient/Caregiver Education, Self-Care/Home Management,Soft Tissue Mobilization,Taping, Therapeutic Exercises Modalities Cold Pack/Ice Massage,Hot Packs,Ultrasound Other Referrals/Consults Referrals/Consults Recommended EMG study if atrophy of L hand hypthenar, intrinsic of index /middle finger and forearm muscle strength does not respond to strengthening. Next Visit Focus/Plan Next Note Type Treatment Note Next Visit Plan Review pt's self care edema management home program. Discuss use of nighttime splint for L wrist and positioning of neck/shoulders due to prior history of R (?L) hand numbness on waking in morning. Discuss use of wrist splint for nighttime if performing excessive wrist flexion during the night. US to L carpal tunnel (possibly laser), f/b gentle stretching and start gentle isometric strengthening of forearm, monitoring for sensation changes. Assess sharp/dull sensation of hand and monitor for cold/hot and circulatory changes. Progress opposition (little finger) and 5th digit/ thumb strengthening. Compression of radial/unar interosseous during forearm ex (MWM). Ther Ex when appropriate for L forearm, wrist, hypothenar, opposition with little finger and intrinsic of index, middle and little finger.
--- NOTE | 2020-10-06 15:21 | PT-OP ANOTE ---
Per telephone conv, pt states he didn't see on his appt list an appointment for this month. He thought his PT started in Oct. Pt notified of his next appt date and time.
--- NOTE | 2020-10-09 16:17 | PT.OTN ---
Current Diagnoses Carpal tunnel syndrome, left upper limb (10/09/20) Pain in left wrist (10/09/20) Stiffness of left wrist, not elsewhere classified (10/09/20) Muscle weakness (generalized) (10/09/20) Physical Therapy Treatment Note PT-OP-A Visit Information Start: 09/26/20 11:54 Freq: Status: Active Protocol: Document 10/09/20 14:22 LRN (Rec: 10/09/20 16:16 LRN [id number]) Out-Patient Physical Therapy Visit Information Visit Information Visit Type Treatment Note Visit Start Time 14:22 Visit Stop Time 15:04 Total Visit Minutes 42 Visit Number 2 Evaluation Information Evaluation Date 09/29/20 Precautions Precautions History of depression History of sensation changes in R hand after nighttime sleeping. Osteoarthritis of hands. 2 Prostate Biopsies, both benign (09/2019, 07/2020). PT-OP-B Current Condition Start: 09/26/20 11:54 Freq: Status: Active Protocol: Document 09/29/20 14:28 LRN (Rec: 09/29/20 16:46 LRN [id number]) Current Condition History of Current Condition Onset Date 08/10/20 Current Complaints Can't feel his hand. History of Current Condition L hand was almost severed. L hand was compressed by metal by a boat raz assembly pressing his hand into his boat. 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 No broken bones. Was able to move hand, no blood, only couldn't feel hand but could tell he could move his L hand. Has been elevating his hand, has been using cold pack for swelling, and heat to stimulate blood flow. Went to see his doctor a couple weeks after injury. Has been doing hand yoga, keeping his hands/ fingers moving. His L little finger and ring finger was numb, now he can feel his little finger and the lateral side of his ring finger. Index & middle finger is numb, thumb lateral side is starting to tingle, medial and thumb pad side is numb. Has a history of numbness of R hand while sleeping that has worsened since injury. Now feels under the biceps is burning. Prior Treatments and Tests None. Future Testing and Treatments Planned None Treatment Goals Patient/Caregiver Goals Pt goal: is to find out what he should be doing to help progress his L hand to normal. Learn what specific things he should be doing that he is not doing to speed up healing process. Improve ability to use his fingers to zip up pants and button his shirt. 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. Current Functional Impairments (Reported) Functional Limitations- ADL's Can't zip pants or button shirt because can't feel index finger (no pain in fingers). Limited with anything that requires use of thumb/ forefinger (brushing teeth) is awkward. Functional Limitations- Work/School Working FT, awkward with doing detail work, like writing ( can write but not able to feel ). Personal Factors Other Personal Factors That May Effect Depression Therapy/Recovery History of sensation changes in R hand after nighttime sleeping. Osteoarthritis of hands. 2 Prostate Biopsies, both benign (09/2019, 07/2020). PT-OP-C Subjective Start: 09/26/20 11:54 Freq: Status: Active Protocol: Document 10/09/20 14:22 LRN (Rec: 10/09/20 16:16 LRN [id number]) OP-PT Subjective Patient Comments Patient Comments States he is slowly getting feeling back in the edges of the L hand. Edges are feeling tingly and prickly. L little finger still ok, ring finger except on the medial side is pretty normal. Did the hot/ cold technique. PT-OP-H Neuro Start: 09/26/20 11:54 Freq: Status: Active Protocol: Document 09/29/20 14:28 LRN (Rec: 09/29/20 16:46 LRN [id number]) Sensation Evaluation Gross Sensation Gross Sensation Left UE Impaired Sensation Description Numbness,Tingling Comments Summary Comments See Pain assessment Grid that pt noted decreased sensation vs numbness (sectioins of the median nerve distribution). PT-OP-J Posture/Palpation/Skin Start: 09/26/20 11:54 Freq: Status: Active Protocol: Document 09/29/20 14:28 LRN (Rec: 09/29/20 16:46 LRN [id number]) Posture Evaluation Comments Posture Comments Forward head, Winged scapula bilaterally, L shoulder rolled forward and elevated, bilaterally arms internally rotated. Palpation Assessment Location L wrist Palpation Location L wrist Palpation Findings Edema PT-OP-K Range of Motion Start: 09/26/20 11:54 Freq: Status: Active Protocol: Document 09/29/20 14:28 LRN (Rec: 09/29/20 16:46 LRN [id number]) Wrist Goniometric Range of Motion Wrist Right Wrist ROM WFL Yes Flexion Active (degrees) 70 Extension Active (degrees) 53 Ulnar Deviation Active (degrees) 28 Radial Deviation Active (degrees) 10 Left Wrist ROM WFL No Flexion Active (degrees) 70 Extension Active (degrees) 42 Ulnar Deviation Active (degrees) 17 Radial Deviation Active (degrees) 8 Finger Goniometric Range of Motion Finger Right Second MCP Flexion Active (degrees) 56 PIP Flexion Active (degrees) 96 DIP Flexion Active (70-90 degrees) 50 L Left Second MCP Flexion Active (degrees) 62 PIP Flexion Active (degrees) 88 DIP Flexion Active (70-90 degrees) 38 L Finger ROM Limitations Comments Opposition of little finger to medial side on L hand. L hand: Touch thumb to palm , yes on Right to 4th finger, Left to middle finger. PT-OP-L Special Tests Start: 09/26/20 11:54 Freq: Status: Active Protocol: Document 09/29/20 14:28 LRN (Rec: 09/29/20 16:46 LRN [id number]) Special Tests Wrist/Hand Special Tests Phalens Test Results L wrist unknown Comments L hand numb with no change in numbness Tinels Test Results L wrist is positive Comments Tingling onset PT-OP-M Strength Start: 09/26/20 11:54 Freq: Status: Active Protocol: Document 09/29/20 14:28 LRN (Rec: 09/29/20 16:46 LRN [id number]) Elbow/Forearm Strength Elbow and Forearm Manual Muscle Testing Right Comments Generally 5/5 Left Comments Generally 5/5 Wrist Strength Wrist Manual Muscle Testing Right Comments Generally 5/5 Left Comments Generally 5/5 as tested within pt's available range. Finger/Thumb Strength Finger Manual Muscle Testing Right Second Adduction 5 Normal Left Second Adduction 3 Fair Right Thumb Comments Opposition to all finger is normal. Left Thumb Comments Opposition to little finger is 3/5, otherwise 5/5 Hand Engine Dynamometer Tester/Pinch Strength Hand Dominance Hand Dominance Left Hand Strength Right Comments Engine Dynamometer Tester strength in kgs: 35, 32, 32 (avg is 33 kg) Left Comments Engine Dynamometer Tester strength in kgs: 26, 28, 28 (avg is 27 kg) PT-OP-Q Treatments Start: 09/26/20 11:54 Freq: Status: Active Protocol: Document 10/09/20 14:22 LRN (Rec: 10/09/20 16:16 LRN [id number]) Therapeutic Exercises Supine Exercises Wrist flex Supine Exercise Name AROM stretch while on MH to neck, Arm in supination Side left Reps/Minutes 10x 2 Wrist ext Supine Exercise Name AROM stretch while on MH to neck, Arm in pronation Side left Reps/Minutes 10x 2 Forearm sup/pron Supine Exercise Name AROM while on MH to neck Side left Reps/Minutes 10x 3 Sitting Exercises L thrum flex ARROM Sitting Exercise Name Manual self resist to neutral Side left Reps/Minutes 3' Comments Extra time for training self resistance w/caution for lack of sensation L thumb flex Sitting Exercise Name AROM Side left Reps/Minutes 15x Comments Manual assist and extra time for training of movement L thumb AB strengthening Sitting Exercise Name AROM Side left Reps/Minutes 4' Comments Much phys & v cuing needed for pt to understand how to do ex correctly. L thumb AB stretch Sitting Exercise Name PROM Side left Reps/Minutes 4' Comments Much phys & v cuing for proper stretch Opposition Sitting Exercise Name Opposition for coordination/ speed & focus ring/little finger Side left Reps/Minutes 5' Comments Not able to touch ring (side) & little finger (not able to reach) pad Self-Care/Home Management Treatment Education Patient Education Home Exercise Program,Pain Management Other Education Reviewed/discussed edema management technique for home program. Discussed use of nighttime over the counter wrist splint to limit excessive wrist flexion. Discussed use for both wrists. Pt has one from previous treatent of Dupytren' s condition on the R hand. Activities Self-Care/Home Management Activities Issued & reviewed HEP: L Thumb AB stretch f/b active AB & Stretch into L thumb flexion f/b active flexion and self manual resistive flex to neutral. PT-OP-T Assessment and Plan Start: 09/26/20 11:54 Freq: Status: Active Protocol: Document 10/09/20 14:22 LRN (Rec: 10/09/20 16:16 LRN [id number]) Physical Therapy Assessment Goals Three Impairment Decreased L hand and finger strength (see below) Impairment UE QuickDASH score of 27.27 ( 20-39% impaired) Engine Dynamometer Tester strength (kgs with 3 trials): 26, 28, 28 left; 35, 32, 32 right. Index finger AD: 3/5 left, 5/ 5 right. Opposition: thumb and little finger: 2+/5 left, 5/5 right. Short Term Goal (STG) Improve L hand strength with improved function per UE QuickDASH score of 19 or less with 1-19% impairment. STG Duration 10/27/20 Senior Care Goal (LTG) Pt able to zip pants or button shirt. LTG Duration 11/28/20 Two Impairment Decreased L wrist, index finger (PIP/DIP) AROM Impairment AROM: Wrist (in deg's): Flex: 70 L, 70 R; Ext: 42 L, 53 R; UD: 17 L, 28 R; RD: 8 L, 10 R. Index finger active flexion ( in deg's): PIP jt: 88 left, 96 right DIP jt: 38 left, 50 right. Short Term Goal (STG) Pt will be able to hold his toothbrush to brush his teeth with ease (not awkward). STG Duration 10/27/20 Construction Crew Member Goal (LTG) Improve L wrist & index finger AROM LTG Duration 11/28/20 One Impairment Lacks appropriate self care HEP Short Term Goal (STG) Pt will be independent in wrist (ext, UD/RD) and finger (flex, ext, AB/AD, opposition) AROM ex's. STG Duration 10/27/20 Construction Crew Member Goal (LTG) Pt will be independent in a self care HEP (AROM & strengthening ex's for the L forearm, wrist, fingers. LTG Duration 11/28/20 Assessment Summary Assessment Pt sensation in the L hand is returning with normal on the lateral side of the L ring finger and normal in the L little finger. + Tinel Sign. Pt lacks L thumb AB and poor ability to perform opposition with L ring & little finger. Physical Therapy Plan Frequency and Duration Frequency of Treatment 2x/Week Plan of Care Start Date 09/29/20 Plan of Care End Date 11/28/20 Next Visit Focus/Plan Next Note Type Treatment Note Next Visit Plan Discuss use of nighttime splint for L wrist and positioning of neck/shoulders due to prior history of R (?L) hand numbness on waking in morning. Discuss use of wrist splint for nighttime if performing excessive wrist flexion during the night. US to L carpal tunnel (possibly laser), f/b gentle stretching and start gentle isometric strengthening of forearm, monitoring for sensation changes. Assess sharp/dull sensation of hand and monitor for cold/hot and circulatory changes. Progress opposition (little finger) and 5th digit/ thumb strengthening. Compression of radial/unar interosseous during forearm ex (MWM). Ther Ex when appropriate for L forearm, wrist, hypothenar, opposition with little finger and intrinsic of index, middle and little finger.
--- NOTE | 2020-10-20 15:45 | PT.OTN ---
Current Diagnoses Carpal tunnel syndrome, left upper limb (10/20/20) Pain in left wrist (10/20/20) Stiffness of left wrist, not elsewhere classified (10/20/20) Muscle weakness (generalized) (10/20/20) Physical Therapy Treatment Note PT-OP-A Visit Information Start: 09/26/20 11:54 Freq: Status: Active Protocol: Document 10/20/20 13:34 LRN (Rec: 10/20/20 14:21 LRN [id number]) Out-Patient Physical Therapy Visit Information Visit Information Visit Type Treatment Note Visit Start Time 13:34 Visit Stop Time 14:18 Total Visit Minutes 44 Visit Number 3 Evaluation Information Evaluation Date 09/29/20 Precautions Precautions History of depression History of sensation changes in R hand after nighttime sleeping. Osteoarthritis of hands. 2 Prostate Biopsies, both benign (09/2019, 07/2020). PT-OP-B Current Condition Start: 09/26/20 11:54 Freq: Status: Active Protocol: Document 09/29/20 14:28 LRN (Rec: 09/29/20 16:46 LRN [id number]) Current Condition History of Current Condition Onset Date 08/10/20 Current Complaints Can't feel his hand. History of Current Condition L hand was almost severed. L hand was compressed by metal by a boat raz assembly pressing his hand into his boat. 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 No broken bones. Was able to move hand, no blood, only couldn't feel hand but could tell he could move his L hand. Has been elevating his hand, has been using cold pack for swelling, and heat to stimulate blood flow. Went to see his doctor a couple weeks after injury. Has been doing hand yoga, keeping his hands/ fingers moving. His L little finger and ring finger was numb, now he can feel his little finger and the lateral side of his ring finger. Index & middle finger is numb, thumb lateral side is starting to tingle, medial and thumb pad side is numb. Has a history of numbness of R hand while sleeping that has worsened since injury. Now feels under the biceps is burning. Prior Treatments and Tests None. Future Testing and Treatments Planned None Treatment Goals Patient/Caregiver Goals Pt goal: is to find out what he should be doing to help progress his L hand to normal. Learn what specific things he should be doing that he is not doing to speed up healing process. Improve ability to use his fingers to zip up pants and button his shirt. 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 Current Functional Impairments (Reported) Functional Limitations- ADL's Can't zip pants or button shirt because can't feel index finger (no pain in fingers). Limited with anything that requires use of thumb/ forefinger (brushing teeth) is awkward. Functional Limitations- Work/School Working FT, awkward with doing detail work, like writing ( can write but not able to feel ). Personal Factors Other Personal Factors That May Effect Depression Therapy/Recovery History of sensation changes in R hand after nighttime sleeping. Osteoarthritis of hands. 2 Prostate Biopsies, both benign (09/2019, 07/2020). PT-OP-C Subjective Start: 09/26/20 11:54 Freq: Status: Active Protocol: Document 10/20/20 13:34 LRN (Rec: 10/20/20 14:21 LRN [id number]) OP-PT Subjective Patient Comments Patient Comments States he is slowly getting. L index finger remains numb, the top part is starting to wake up. Using hand, starting to feel slightly the tactile feeling parts of L hand on the inside edges and outside parts of the hand. PT-OP-H Neuro Start: 09/26/20 11:54 Freq: Status: Active Protocol: Document 09/29/20 14:28 LRN (Rec: 09/29/20 16:46 LRN [id number]) Sensation Evaluation Gross Sensation Gross Sensation Left UE Impaired Sensation Description Numbness,Tingling Comments Summary Comments See Pain assessment Grid that pt noted decreased sensation vs numbness (sectioins of the median nerve distribution). PT-OP-J Posture/Palpation/Skin Start: 09/26/20 11:54 Freq: Status: Active Protocol: Document 09/29/20 14:28 LRN (Rec: 09/29/20 16:46 LRN [id number]) Posture Evaluation Comments Posture Comments Forward head, Winged scapula bilaterally, L shoulder rolled forward and elevated, bilaterally arms internally rotated. Palpation Assessment Location L wrist Palpation Location L wrist Palpation Findings Edema PT-OP-K Range of Motion Start: 09/26/20 11:54 Freq: Status: Active Protocol: Document 09/29/20 14:28 LRN (Rec: 09/29/20 16:46 LRN [id number]) Wrist Goniometric Range of Motion Wrist Right Wrist ROM WFL Yes Flexion Active (degrees) 70 Extension Active (degrees) 53 Ulnar Deviation Active (degrees) 28 Radial Deviation Active (degrees) 10 Left Wrist ROM WFL No Flexion Active (degrees) 70 Extension Active (degrees) 42 Ulnar Deviation Active (degrees) 17 Radial Deviation Active (degrees) 8 Finger Goniometric Range of Motion Finger Right Second MCP Flexion Active (degrees) 56 PIP Flexion Active (degrees) 96 DIP Flexion Active (70-90 degrees) 50 L Left Second MCP Flexion Active (degrees) 62 PIP Flexion Active (degrees) 88 DIP Flexion Active (70-90 degrees) 38 L Finger ROM Limitations Comments Opposition of little finger to medial side on L hand. L hand: Touch thumb to palm , yes on Right to 4th finger, Left to middle finger. PT-OP-L Special Tests Start: 09/26/20 11:54 Freq: Status: Active Protocol: Document 09/29/20 14:28 LRN (Rec: 09/29/20 16:46 LR [id number]) Special Tests Wrist/Hand Special Tests Phalens Test Results L wrist unknown Comments L hand numb with no change in numbness Tinels Test Results L wrist is positive Comments Tingling onset PT-OP-M Strength Start: 09/26/20 11:54 Freq: Status: Active Protocol: Document 09/29/20 14:28 LRN (Rec: 09/29/20 16:46 [facility] [id number]) Elbow/Forearm Strength Elbow and Forearm Manual Muscle Testing Right Comments Generally 5/5 Left Comments Generally 5/5 Wrist Strength Wrist Manual Muscle Testing Right Comments Generally 5/5 Left Comments Generally 5/5 as tested within pt's available range. Finger/Thumb Strength Finger Manual Muscle Testing Right Second Adduction 5 Normal Left Second Adduction 3 Fair Right Thumb Comments Opposition to all finger is normal. Left Thumb Comments Opposition to little finger is 3/5, otherwise 5/5 Hand Toe Laster/Pinch Strength Hand Dominance Hand Dominance Left Hand Strength Right Comments Toe Laster strength in kgs: 35, 32, 32 (avg is 33 kg) Left Comments Toe Laster strength in kgs: 26, 28, 28 (avg is 27 kg) PT-OP-Q Treatments Start: 09/26/20 11:54 Freq: Status: Active Protocol: Document 10/20/20 13:34 LRN (Rec: 10/20/20 14:21 LRN [id number]) Therapeutic Exercises Sitting Exercises Finger ext Sitting Exercise Name Finger ext (all digits) Side left Gripping Sitting Exercise Name Gripping review Side left Reps/Minutes 1' Finger AB strengthening Sitting Exercise Name Finger AB strengthening Side left Equipment Used Moderate soft Red TPutty Reps/Minutes 5 x 3 each finger group Comments Much phys & v cuing needed to determing max tolerated resistance Finger AD strengthening Sitting Exercise Name Fingers AD strengthening Side left Equipment Used Moderate soft Red TPutty Reps/Minutes 5 x 3 each finger group Comments Much phys & v cuing needed to determing max tolerated resistance Wrist UD Sitting Exercise Name Isometric strengthening (to the floor & out to side mvmt) Side left Equipment Used Lev 2 TB Reps/Minutes 10x[address] Sitting Exercise Name Isometric strengthening Side left Equipment Used Lev 2 TB Reps/Minutes 10x 3 Wrist ext strengthening Sitting Exercise Name Isometric strengthening (Elbow Curl-hand pronation) Side left Equipment Used Lev 2 TB Reps/Minutes 10x 3 Wrist flex strengthening Sitting Exercise Name Isometric strengthening (Elbow Curls-hand sup) Side left Equipment Used Lev 2 TB Reps/Minutes 10x 3 Self-Care/Home Management Treatment Education Other Education Reviewed pt posture with sleeping and wrist positioning for neutral positioning. Educated pt in proper wrist position during sleeping and discussed if there was a need for a nighttime wrist spint. Activities Self-Care/Home Management Activities Issued & reviewed HEP handouts for wrist strengthening ( isometric > concentric) and I/ S pt in finger AB/AD/Flex/Ext with use of TPutty. Issued Mod Soft Red TPutty. PT-OP-T Assessment and Plan Start: 09/26/20 11:54 Freq: Status: Active Protocol: Document 10/20/20 13:34 LRN (Rec: 10/20/20 14:21 LRN [id number]) Physical Therapy Assessment Goals Three Impairment Decreased L hand and finger strength (see below) Impairment UE QuickDASH score of 27.27 ( 20-39% impaired) Toe Laster strength (kgs with 3 trials): 26, 28, 28 left; 35, 32, 32 right. Index finger AD: 3/5 left, 5/ 5 right. Opposition: thumb and little finger: 2+/5 left, 5/5 right. Short Term Goal (STG) Improve L hand strength with improved function per UE QuickDASH score of 19 or less with 1-19% impairment. STG Duration 10/27/20 Reducing System Operator Goal (LTG) Pt able to zip pants or button shirt. LTG Duration 11/28/20 Two Impairment Decreased L wrist, index finger (PIP/DIP) AROM Impairment AROM: Wrist (in deg's): Flex: 70 L, 70 R; Ext: 42 L, 53 R; UD: 17 L, 28 R; RD: 8 L, 10 R. Index finger active flexion ( in deg's): PIP jt: 88 left, 96 right DIP jt: 38 left, 50 right. Short Term Goal (STG) Pt will be able to hold his toothbrush to brush his teeth with ease (not awkward). STG Duration 10/27/20 Intermediate Goal (LTG) Improve L wrist & index finger AROM LTG Duration 11/28/20 One Impairment Lacks appropriate self care HEP Short Term Goal (STG) Pt will be independent in wrist (ext, UD/RD) and finger (flex, ext, AB/AD, opposition) AROM ex's. (09/29/20: L Thumb AB & thumb flex passive & active stretch & manual resistive thumb flexion to neutral: 10/20/20: HEP: UD/RD, flex/ext isometrics, reviewed Fiona thumb flex, & strengthening of finger AB/AD/Flex/Ext) STG Duration 10/27/20 (10/20/20: MET GOAL) Reducing System Operator Goal (LTG) Pt will be independent in a self care HEP (AROM & strengthening ex's for the L forearm, wrist, fingers. LTG Duration 11/28/20 (10/20/20: Progressed) Progress Towards Goals Progress Comments Progressed HEP. Assessment Summary Assessment Nighttime wrist splint not needed due to good positioning of wrist at nighttime. Pt did not have any onset of pain or increased numbness or tingling of the L hand with hand/wrist exer's. Finger AD of little finger shows much weakness. Pt is apparently in neutral head positioning while sleeping. Physical Therapy Plan Frequency and Duration Frequency of Treatment 2x/Week Plan of Care Start Date 09/29/20 Plan of Care End Date 11/28/20 Next Visit Focus/Plan Next Note Type Treatment Note Next Visit Plan Add L hand opposition strengthening ex. & Putty on table strengthening. Compression of radial/unar interosseous during forearm ex (MWM) for pain or sensation changes control. ?US to L carpal tunnel (possibly laser) , f/b gentle stretching and review isometric strengthening of forearm, monitoring for sensation changes & progress to concentric strengthening. Assess sharp/dull sensation of hand and monitor for cold/hot and circulatory changes. Progress opposition (little finger) and 5th digit/thumb strengthening. Ther Ex when appropriate for L forearm, wrist, hypothenar, opposition with little finger and intrinsic of index, middle and little finger.
--- NOTE | 2020-10-24 16:34 | PT.OTN ---
Current Diagnoses Carpal tunnel syndrome, left upper limb (10/24/20) Pain in left wrist (10/24/20) Stiffness of left wrist, not elsewhere classified (10/24/20) Muscle weakness (generalized) (10/24/20) Physical Therapy Treatment Note PT-OP-A Visit Information Start: 09/26/20 11:54 Freq: Status: Active Protocol: Document 10/24/20 14:24 LRN (Rec: 10/24/20 15:09 LRN [id number]) Out-Patient Physical Therapy Visit Information Visit Information Visit Type Treatment Note Visit Start Time 14:24 Visit Stop Time 15:07 Total Visit Minutes 43 Visit Number 4 Evaluation Information Evaluation Date 09/29/20 Precautions Precautions History of depression History of sensation changes in R hand after nighttime sleeping. Osteoarthritis of hands. 2 Prostate Biopsies, both benign (09/2019, 07/2020). PT-OP-B Current Condition Start: 09/26/20 11:54 Freq: Status: Active Protocol: Document 09/29/20 14:28 LRN (Rec: 09/29/20 16:46 LRN [id number]) Current Condition History of Current Condition Onset Date 08/10/20 Current Complaints Can't feel his hand. History of Current Condition L hand was almost severed. L hand was compressed by metal by a boat raz assembly pressing his hand into his boat. 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 No broken bones. Was able to move hand, no blood, only couldn't feel hand but could tell he could move his L hand. Has been elevating his hand, has been using cold pack for swelling, and heat to stimulate blood flow. Went to see his doctor a couple weeks after injury. Has been doing hand yoga, keeping his hands/ fingers moving. His L little finger and ring finger was numb, now he can feel his little finger and the lateral side of his ring finger. Index & middle finger is numb, thumb lateral side is starting to tingle, medial and thumb pad side is numb. Has a history of numbness of R hand while sleeping that has worsened since injury. Now feels under the biceps is burning. Prior Treatments and Tests None. Future Testing and Treatments Planned None Treatment Goals Patient/Caregiver Goals Pt goal: is to find out what he should be doing to help progress his L hand to normal. Learn what specific things he should be doing that he is not doing to speed up healing process. Improve ability to use his fingers to zip up pants and button his shirt. 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 Current Functional Impairments (Reported) Functional Limitations- ADL's Can't zip pants or button shirt because can't feel index finger (no pain in fingers). Limited with anything that requires use of thumb/ forefinger (brushing teeth) is awkward. Functional Limitations- Work/School Working FT, awkward with doing detail work, like writing ( can write but not able to feel ). Personal Factors Other Personal Factors That May Effect Depression Therapy/Recovery History of sensation changes in R hand after nighttime sleeping. Osteoarthritis of hands. 2 Prostate Biopsies, both benign (09/2019, 07/2020). PT-OP-C Subjective Start: 09/26/20 11:54 Freq: Status: Active Protocol: Document 10/24/20 14:24 LRN (Rec: 10/24/20 15:09 LRN [id number]) OP-PT Subjective Patient Comments Patient Comments Feeling tingling and more in L thumb and Thenar region; therefore can button shirt easier. L middle and index finger is still numb PT-OP-H Neuro Start: 09/26/20 11:54 Freq: Status: Active Protocol: Document 09/29/20 14:28 LRN (Rec: 09/29/20 16:46 LRN [id number]) Sensation Evaluation Gross Sensation Gross Sensation Left UE Impaired Sensation Description Numbness,Tingling Comments Summary Comments See Pain assessment Grid that pt noted decreased sensation vs numbness (sectioins of the median nerve distribution). PT-OP-J Posture/Palpation/Skin Start: 09/26/20 11:54 Freq: Status: Active Protocol: Document 09/29/20 14:28 LRN (Rec: 09/29/20 16:46 LRN [id number]) Posture Evaluation Comments Posture Comments Forward head, Winged scapula bilaterally, L shoulder rolled forward and elevated, bilaterally arms internally rotated. Palpation Assessment Location L wrist Palpation Location L wrist Palpation Findings Edema PT-OP-K Range of Motion Start: 09/26/20 11:54 Freq: Status: Active Protocol: Document 09/29/20 14:28 LRN (Rec: 09/29/20 16:46 LRN [id number]) Wrist Goniometric Range of Motion Wrist Right Wrist ROM WFL Yes Flexion Active (degrees) 70 Extension Active (degrees) 53 Ulnar Deviation Active (degrees) 28 Radial Deviation Active (degrees) 10 Left Wrist ROM WFL No Flexion Active (degrees) 70 Extension Active (degrees) 42 Ulnar Deviation Active (degrees) 17 Radial Deviation Active (degrees) 8 Finger Goniometric Range of Motion Finger Right Second MCP Flexion Active (degrees) 56 PIP Flexion Active (degrees) 96 DIP Flexion Active (70-90 degrees) 50 L Left Second MCP Flexion Active (degrees) 62 PIP Flexion Active (degrees) 88 DIP Flexion Active (70-90 degrees) 38 L Finger ROM Limitations Comments Opposition of little finger to medial side on L hand. L hand: Touch thumb to palm , yes on Right to 4th finger, Left to middle finger. PT-OP-L Special Tests Start: 09/26/20 11:54 Freq: Status: Active Protocol: Document 09/29/20 14:28 LRN (Rec: 09/29/20 16:46 LRN [id number]) Special Tests Wrist/Hand Special Tests Phalens Test Results L wrist unknown Comments L hand numb with no change in numbness Tinels Test Results L wrist is positive Comments Tingling onset PT-OP-M Strength Start: 09/26/20 11:54 Freq: Status: Active Protocol: Document 09/29/20 14:28 LRN (Rec: 09/29/20 16:46 LR [id number]) Elbow/Forearm Strength Elbow and Forearm Manual Muscle Testing Right Comments Generally 5/5 Left Comments Generally 5/5 Wrist Strength Wrist Manual Muscle Testing Right Comments Generally 5/5 Left Comments Generally 5/5 as tested within pt's available range. Finger/Thumb Strength Finger Manual Muscle Testing Right Second Adduction 5 Normal Left Second Adduction 3 Fair Right Thumb Comments Opposition to all finger is normal. Left Thumb Comments Opposition to little finger is 3/5, otherwise 5/5 Hand Streetsweeper Operator/Pinch Strength Hand Dominance Hand Dominance Left Hand Strength Right Comments Streetsweeper Operator strength in kgs: 35, 32, 32 (avg is 33 kg) Left Comments Streetsweeper Operator strength in kgs: 26, 28, 28 (avg is 27 kg) PT-OP-Q Treatments Start: 09/26/20 11:54 Freq: Status: Active Protocol: Document 10/24/20 14:24 LRN (Rec: 10/24/20 15:09 N [id number]) Therapeutic Exercises Sitting Exercises Grasping/twisting Sitting Exercise Name Grasp/twist of granger bag Reps/Minutes 5' L pronation stretch Sitting Exercise Name L pronation stretch f/b active stretch Side left Equipment Used Hammer AND without hammer Reps/Minutes 10'' Comments Much phys cuing needed for self stretch. Forearm sup/pronation Sitting Exercise Name Sup/Pron with Hammer head on Ulnar side and radial side Side left Reps/Minutes 30x each Comments Cuing to find best tolerated position for holding hammer Wrist UD Sitting Exercise Name Arom strengthening (to the floor & out to side mvmt) Side left Reps/Minutes 10x3 [address] Sitting Exercise Name AROM strengthening Side left Reps/Minutes 10x 3 Opposition Sitting Exercise Name Opposition w/all fingers Side left Equipment Used Red TPutty Reps/Minutes 5' L wrist ext stretch Sitting Exercise Name L wrist ext Side left Reps/Minutes 4' Comments v cuing for proper stretch (no bouncing) Self-Care/Home Management Treatment Education Patient Education Home Exercise Program Activities Self-Care/Home Management Activities Discussed & I/S pt to do more hot/cold treatment at home. I/S pt he could do active wrist UD/RD strengthening and sup/pron with hammer. I/S pt to avoid resistance at a level that causes pain (twisting). PT-OP-T Assessment and Plan Start: 09/26/20 11:54 Freq: Status: Active Protocol: Document 10/24/20 14:24 LRN (Rec: 10/24/20 15:09 [facility] [id number]) Physical Therapy Assessment Goals Three Impairment Decreased L hand and finger strength (see below) Impairment UE QuickDASH score of 27.27 ( 20-39% impaired) Streetsweeper Operator strength (kgs with 3 trials): 26, 28, 28 left; 35, 32, 32 right. Index finger AD: 3/5 left, 5/ 5 right. Opposition: thumb and little finger: 2+/5 left, 5/5 right. Short Term Goal (STG) Improve L hand strength with improved function per UE QuickDASH score of 19 or less with 1-19% impairment. STG Duration 10/27/20 Alf Goal (LTG) Pt able to zip pants or button shirt. (10/24/20: Better able to button shirt) LTG Duration 11/28/20 (10/24/20: Improving ) Two Impairment Decreased L wrist, index finger (PIP/DIP) AROM Impairment AROM: Wrist (in deg's): Flex: 70 L, 70 R; Ext: 42 L, 53 R; UD: 17 L, 28 R; RD: 8 L, 10 R. Index finger active flexion ( in deg's): PIP jt: 88 left, 96 right DIP jt: 38 left, 50 right. Short Term Goal (STG) Pt will be able to hold his toothbrush to brush his teeth with ease (not awkward). (10/24/20: Awkward, pt reports he usually brushes his teeth with the R arm). STG Duration 10/27/20 Alf Goal (LTG) Improve L wrist & index finger AROM LTG Duration 11/28/20 One Impairment Lacks appropriate self care HEP Short Term Goal (STG) Pt will be independent in wrist (ext, UD/RD) and finger (flex, ext, AB/AD, opposition) AROM ex's. (09/29/20: L Thumb AB & thumb flex passive & active stretch & manual resistive thumb flexion to neutral: 10/20/20: HEP: UD/RD, flex/ext isometrics, reviewed Fiona thumb flex, & strengthening of finger AB/AD/Flex/Ext) STG Duration 10/27/20 (10/20/20: MET GOAL) Personalization Specialist Goal (LTG) Pt will be independent in a self care HEP (AROM & strengthening ex's for the L forearm, wrist, fingers. (10/24/20: I/S pt in sup/pron ROM and strengthening ex's) LTG Duration 11/28/20 (10/24/20: Progressed) Assessment Summary Assessment Pt is able to do pron/sup ex's without complaints. Return of sensation reported by pt is : Index finger 75-80% NL, middle finger 20-25% NL, 10%NL index finger, 90-95% little finger NL, Thumb is numb on volar surface (40% NL). Good tolerance to strengthening & pt strengthe/sensation appears to be slowly returning; therefore no need for US or laser treatment. Pt appears to be doing more physical labor at work than her in clinic. Physical Therapy Plan Frequency and Duration Frequency of Treatment 2x/Week Plan of Care Start Date 09/29/20 Plan of Care End Date 11/28/20 Next Visit Focus/Plan Next Note Type Treatment Note Next Visit Plan Review L hand opposition strengthening ex. & Add Putty on table strengthening. Compression of radial/unar interosseous during Streetsweeper Operator/twist ex (MWM) to minimize sharp pain in forearm. Add to HEP stretching wrist/forearm, monitor for sensation changes & progress to concentric strengthening. Assess sharp/ dull sensation of hand and monitor for cold/hot and circulatory changes. Progress opposition (little finger) and 5th digit/thumb strengthening. Ther Ex when appropriate for L forearm, wrist, hypothenar, opposition with little finger and intrinsic of index, middle and little finger.
--- NOTE | 2020-10-27 16:41 | PT.OTN ---
Current Diagnoses Carpal tunnel syndrome, left upper limb (10/27/20) Pain in left wrist (10/27/20) Stiffness of left wrist, not elsewhere classified (10/27/20) Muscle weakness (generalized) (10/27/20) Physical Therapy Treatment Note PT-OP-A Visit Information Start: 09/26/20 11:54 Freq: Status: Active Protocol: Document 10/27/20 13:36 LRN (Rec: 10/27/20 14:23 LRN [id number]) Out-Patient Physical Therapy Visit Information Visit Information Visit Type Treatment Note Visit Start Time 13:36 Visit Stop Time 14:18 Total Visit Minutes 42 Visit Number 5 Evaluation Information Evaluation Date 09/29/20 Precautions Precautions History of depression History of sensation changes in R hand after nighttime sleeping. Osteoarthritis of hands. 2 Prostate Biopsies, both benign (09/2019, 07/2020). PT-OP-B Current Condition Start: 09/26/20 11:54 Freq: Status: Active Protocol: Document 09/29/20 14:28 LRN (Rec: 09/29/20 16:46 LRN [id number]) Current Condition History of Current Condition Onset Date 08/10/20 Current Complaints Can't feel his hand. History of Current Condition L hand was almost severed. L hand was compressed by metal by a boat raz assembly pressing his hand into his boat. 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 No broken bones. Was able to move hand, no blood, only couldn't feel hand but could tell he could move his L hand. Has been elevating his hand, has been using cold pack for swelling, and heat to stimulate blood flow. Went to see his doctor a couple weeks after injury. Has been doing hand yoga, keeping his hands/ fingers moving. His L little finger and ring finger was numb, now he can feel his little finger and the lateral side of his ring finger. Index & middle finger is numb, thumb lateral side is starting to tingle, medial and thumb pad side is numb. Has a history of numbness of R hand while sleeping that has worsened since injury. Now feels under the biceps is burning. Prior Treatments and Tests None. Future Testing and Treatments Planned None Treatment Goals Patient/Caregiver Goals Pt goal: is to find out what he should be doing to help progress his L hand to normal. Learn what specific things he should be doing that he is not doing to speed up healing process. Improve ability to use his fingers to zip up pants and button his shirt. 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 Current Functional Impairments (Reported) Functional Limitations- ADL's Can't zip pants or button shirt because can't feel index finger (no pain in fingers). Limited with anything that requires use of thumb/ forefinger (brushing teeth) is awkward. Functional Limitations- Work/School Working FT, awkward with doing detail work, like writing ( can write but not able to feel ). Personal Factors Other Personal Factors That May Effect Depression Therapy/Recovery History of sensation changes in R hand after nighttime sleeping. Osteoarthritis of hands. 2 Prostate Biopsies, both benign (09/2019, 07/2020). PT-OP-C Subjective Start: 09/26/20 11:54 Freq: Status: Active Protocol: Document 10/27/20 13:36 LRN (Rec: 10/27/20 14:23 LRN [id number]) OP-PT Subjective Patient Comments Patient Comments No change since last visit. PT-OP-H Neuro Start: 09/26/20 11:54 Freq: Status: Active Protocol: Document 09/29/20 14:28 LRN (Rec: 09/29/20 16:46 LRN [id number]) Sensation Evaluation Gross Sensation Gross Sensation Left UE Impaired Sensation Description Numbness,Tingling Comments Summary Comments See Pain assessment Grid that pt noted decreased sensation vs numbness (sectioins of the median nerve distribution). PT-OP-J Posture/Palpation/Skin Start: 09/26/20 11:54 Freq: Status: Active Protocol: Document 09/29/20 14:28 LRN (Rec: 09/29/20 16:46 LRN [id number]) Posture Evaluation Comments Posture Comments Forward head, Winged scapula bilaterally, L shoulder rolled forward and elevated, bilaterally arms internally rotated. Palpation Assessment Location L wrist Palpation Location L wrist Palpation Findings Edema PT-OP-K Range of Motion Start: 09/26/20 11:54 Freq: Status: Active Protocol: Document 10/27/20 13:36 LRN (Rec: 10/27/20 14:23 LRN [id number]) Wrist Goniometric Range of Motion Wrist Right Wrist ROM WFL Yes Flexion Active (degrees) 65 Extension Active (degrees) 55 Ulnar Deviation Active (degrees) 32 Radial Deviation Active (degrees) 15 Left Wrist ROM WFL No Flexion Active (degrees) 60 Extension Active (degrees) 41 Ulnar Deviation Active (degrees) 30 Radial Deviation Active (degrees) 10 Finger Goniometric Range of Motion Finger ROM Limitations Finger ROM Limitations Muscle Weakness Comments L hand: Touch thumb to palm , yes on Right to 4th finger, Left to 4th finger. PT-OP-L Special Tests Start: 09/26/20 11:54 Freq: Status: Active Protocol: Document 09/29/20 14:28 LRN (Rec: 09/29/20 16:46 LRN [id number]) Special Tests Wrist/Hand Special Tests Phalens Test Results L wrist unknown Comments L hand numb with no change in numbness Tinels Test Results L wrist is positive Comments Tingling onset PT-OP-M Strength Start: 09/26/20 11:54 Freq: Status: Active Protocol: Document 09/29/20 14:28 LRN (Rec: 09/29/20 16:46 LRN [id number]) Elbow/Forearm Strength Elbow and Forearm Manual Muscle Testing Right Comments Generally 5/5 Left Comments Generally 5/5 Wrist Strength Wrist Manual Muscle Testing Right Comments Generally 5/5 Left Comments Generally 5/5 as tested within pt's available range. Finger/Thumb Strength Finger Manual Muscle Testing Right Second Adduction 5 Normal Left Second Adduction 3 Fair Right Thumb Comments Opposition to all finger is normal. Left Thumb Comments Opposition to little finger is 3/5, otherwise 5/5 Hand Architectural Modeler/Pinch Strength Hand Dominance Hand Dominance Left Hand Strength Right Comments Architectural Modeler strength in kgs: 35, 32, 32 (avg is 33 kg) Left Comments Architectural Modeler strength in kgs: 26, 28, 28 (avg is 27 kg) PT-OP-Q Treatments Start: 09/26/20 11:54 Freq: Status: Active Protocol: Document 10/27/20 13:36 LRN (Rec: 10/27/20 14:23 LRN [id number]) Therapeutic Exercises Sitting Exercises L pronation stretch Sitting Exercise Name L pronation stretch f/b active stretch Side left Equipment Used Hammer AND without hammer Reps/Minutes 2' Comments Much phys cuing needed for self stretch. Forearm sup/pronation Sitting Exercise Name Sup/Pron with Hammer head on Ulnar side and radial side Side left Reps/Minutes 6' Comments Cuing to find best tolerated position for holding hammer Gripping Sitting Exercise Name Digiflex Squeezing - 5lb Side left Reps/Minutes 3' Finger AB strengthening Sitting Exercise Name Active index finger AB Side left Reps/Minutes 1' Comments AB index finger is 20 deg's bilaterally. Wrist UD Sitting Exercise Name Strengthening - active Side left Reps/Minutes 3' Wrist RD Sitting Exercise Name Stretching & AROM strengthening Side left Reps/Minutes 6' Comments Compression applied to distal forearm to prevent sharp pain. Wrist ext strengthening Sitting Exercise Name Conc wrist ext strengthening Side left Equipment Used 2# Reps/Minutes 15x Comments Pain onset with 3# wgt to start Wrist flex strengthening Sitting Exercise Name Conc wrist flex strengthening Side left Equipment Used 2# Reps/Minutes 15x Comments No pain L thumb flex Sitting Exercise Name AAROM, ARROM Side left Resistance Manual resistance L thumb AB strengthening Sitting Exercise Name AAROM, ARROM Side left Resistance Manual resistance Reps/Minutes 6' Comments Training needed for proper movement and strengthening of weak muscle. Opposition Sitting Exercise Name Opposition w/little finger - Assistive and active Side left Reps/Minutes 5' Comments Much assist to thumb for movement. Pt unable to peform properly L wrist ext stretch Sitting Exercise Name L wrist ext stretch with elbow slight bent Side left Reps/Minutes 4' Comments v cuing for proper stretch (no bouncing) PT-OP-T Assessment and Plan Start: 09/26/20 11:54 Freq: Status: Active Protocol: Document 10/27/20 13:36 LRN (Rec: 10/27/20 14:23 LRN [id number]) Physical Therapy Assessment Goals Three Impairment Decreased L hand and finger strength (see below) Impairment UE QuickDASH score of 27.27 ( 20-39% impaired) Architectural Modeler strength (kgs with 3 trials): 26, 28, 28 left; 35, 32, 32 right. Index finger AD: 3/5 left, 5/ 5 right. Opposition: thumb and little finger: 2+/5 left, 5/5 right. Short Term Goal (STG) Improve L hand strength with improved function per UE QuickDASH score of 19 or less with 1-19% impairment. STG Duration 10/27/20 Longterm Goal (LTG) Pt able to zip pants or button shirt. (10/24/20: Better able to button shirt) LTG Duration 11/28/20 (10/24/20: Improving ) Two Impairment Decreased L wrist, index finger (PIP/DIP) AROM Impairment AROM: Wrist (in deg's): Flex: 70 L, 70 R; Ext: 42 L, 53 R; UD: 17 L, 28 R; RD: 8 L, 10 R. Index finger active flexion ( in deg's): PIP jt: 88 left, 96 right DIP jt: 38 left, 50 right. Short Term Goal (STG) Pt will be able to hold his toothbrush to brush his teeth with ease (not awkward). (10/24/20: Awkward, pt reports he usually brushes his teeth with the R arm). STG Duration 10/27/20 Coat Joiner Goal (LTG) Improve L wrist & index finger AROM (10/27/20: L wrist (in deg's) : Flex: 60 L ; Ext: 41 L; UD: 30 L; RD: 10 L. LTG Duration 11/28/20 (10/27/20: Progressing) One Impairment Lacks appropriate self care HEP Short Term Goal (STG) Pt will be independent in wrist (ext, UD/RD) and finger (flex, ext, AB/AD, opposition) AROM ex's. (09/29/20: L Thumb AB & thumb flex passive & active stretch & manual resistive thumb flexion to neutral: 10/20/20: HEP: UD/RD, flex/ext isometrics, reviewed Fiona thumb flex, & strengthening of finger AB/AD/Flex/Ext) STG Duration 10/27/20 (10/20/20: MET GOAL) Longterm Goal (LTG) Pt will be independent in a self care HEP (AROM & strengthening ex's for the L forearm, wrist, fingers. (10/24/20: I/S pt in sup/pron ROM and strengthening ex's) LTG Duration 11/28/20 (10/24/20: Progressed) Assessment Summary Assessment Pt able to tolerate wrist strengthening with 2# wgt or less due to onset of sharp forearm pains with heavier wgt . L wrist ext and RD is tight . Atrophy of L thumb Abductors (median & radial n.) and flexors (median n.); therefore limited in opposition. Physical Therapy Plan Frequency and Duration Frequency of Treatment 2x/Week Plan of Care Start Date 09/29/20 Plan of Care End Date 11/28/20 Next Visit Focus/Plan Next Note Type Treatment Note Next Visit Plan Review L hand opposition with thumb and 5th digit strengthening. Compression of radial/unar interosseous during Architectural Modeler/twist ex (MWM) to minimize sharp pain in forearm. Add Putty on table strengthening. Assess & Issue HEP wrist/ forearm stretching (monitor for sensation changes) Review concentric strengthening if tolerates 2#. Progress opposition (little finger) and 5th digit/thumb strengthening. If tolerated, ther ex for intrinsic of index , middle and little fingers; assess response to L forearm, wrist, hypothenar, and opposition with little finger.
--- NOTE | 2020-11-04 16:24 | PT.OTN ---
Current Diagnoses Carpal tunnel syndrome, left upper limb (11/04/20) Pain in left wrist (11/04/20) Stiffness of left wrist, not elsewhere classified (11/04/20) Muscle weakness (generalized) (11/04/20) Physical Therapy Treatment Note PT-OP-A Visit Information Start: 09/26/20 11:54 Freq: Status: Active Protocol: Document 11/04/20 14:22 LRN (Rec: 11/04/20 15:06 LRN [id number]) Out-Patient Physical Therapy Visit Information Visit Information Visit Type Treatment Note Visit Start Time 14:22 Visit Stop Time 15:05 Total Visit Minutes 43 Visit Number 6 Evaluation Information Evaluation Date 09/29/20 Precautions Precautions History of depression History of sensation changes in R hand after nighttime sleeping. Osteoarthritis of hands. 2 Prostate Biopsies, both benign (09/2019, 07/2020). PT-OP-B Current Condition Start: 09/26/20 11:54 Freq: Status: Active Protocol: Document 09/29/20 14:28 LRN (Rec: 09/29/20 16:46 LRN [id number]) Current Condition History of Current Condition Onset Date 08/10/20 Current Complaints Can't feel his hand. History of Current Condition L hand was almost severed. L hand was compressed by metal by a boat raz assembly pressing his hand into his boat. 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 No broken bones. Was able to move hand, no blood, only couldn't feel hand but could tell he could move his L hand. Has been elevating his hand, has been using cold pack for swelling, and heat to stimulate blood flow. Went to see his doctor a couple weeks after injury. Has been doing hand yoga, keeping his hands/ fingers moving. His L little finger and ring finger was numb, now he can feel his little finger and the lateral side of his ring finger. Index & middle finger is numb, thumb lateral side is starting to tingle, medial and thumb pad side is numb. Has a history of numbness of R hand while sleeping that has worsened since injury. Now feels under the biceps is burning. Prior Treatments and Tests None. Future Testing and Treatments Planned None Treatment Goals Patient/Caregiver Goals Pt goal: is to find out what he should be doing to help progress his L hand to normal. Learn what specific things he should be doing that he is not doing to speed up healing process. Improve ability to use his fingers to zip up pants and button his shirt. 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 Current Functional Impairments (Reported) Functional Limitations- ADL's Can't zip pants or button shirt because can't feel index finger (no pain in fingers). Limited with anything that requires use of thumb/ forefinger (brushing teeth) is awkward. Functional Limitations- Work/School Working FT, awkward with doing detail work, like writing ( can write but not able to feel ). Personal Factors Other Personal Factors That May Effect Depression Therapy/Recovery History of sensation changes in R hand after nighttime sleeping. Osteoarthritis of hands. 2 Prostate Biopsies, both benign (09/2019, 07/2020). PT-OP-C Subjective Start: 09/26/20 11:54 Freq: Status: Active Protocol: Document 11/04/20 14:22 LRN (Rec: 11/04/20 15:06 LRN [id number]) OP-PT Subjective Patient Comments Patient Comments Can feel a pressure on the L thumb pad. PT-OP-H Neuro Start: 09/26/20 11:54 Freq: Status: Active Protocol: Document 09/29/20 14:28 LRN (Rec: 09/29/20 16:46 LRN [id number]) Sensation Evaluation Gross Sensation Gross Sensation Left UE Impaired Sensation Description Numbness,Tingling Comments Summary Comments See Pain assessment Grid that pt noted decreased sensation vs numbness (sectioins of the median nerve distribution). PT-OP-J Posture/Palpation/Skin Start: 09/26/20 11:54 Freq: Status: Active Protocol: Document 09/29/20 14:28 LRN (Rec: 09/29/20 16:46 LRN [id number]) Posture Evaluation Comments Posture Comments Forward head, Winged scapula bilaterally, L shoulder rolled forward and elevated, bilaterally arms internally rotated. Palpation Assessment Location L wrist Palpation Location L wrist Palpation Findings Edema PT-OP-K Range of Motion Start: 09/26/20 11:54 Freq: Status: Active Protocol: Document 11/04/20 14:22 LRN (Rec: 11/04/20 15:06 LRN [id number]) Elbow/Forearm Range of Motion Elbow/Forearm Left Active Elbow/Forearm ROM WFL No Pronation (degrees) 77 Supination (degrees) 80 PT-OP-L Special Tests Start: 09/26/20 11:54 Freq: Status: Active Protocol: Document 09/29/20 14:28 LRN (Rec: 09/29/20 16:46 LRN [id number]) Special Tests Wrist/Hand Special Tests Phalens Test Results L wrist unknown Comments L hand numb with no change in numbness Tinels Test Results L wrist is positive Comments Tingling onset PT-OP-M Strength Start: 09/26/20 11:54 Freq: Status: Active Protocol: Document 09/29/20 14:28 LRN (Rec: 09/29/20 16:46 LRN [id number]) Elbow/Forearm Strength Elbow and Forearm Manual Muscle Testing Right Comments Generally 5/5 Left Comments Generally 5/5 Wrist Strength Wrist Manual Muscle Testing Right Comments Generally 5/5 Left Comments Generally 5/5 as tested within pt's available range. Finger/Thumb Strength Finger Manual Muscle Testing Right Second Adduction 5 Normal Left Second Adduction 3 Fair Right Thumb Comments Opposition to all finger is normal. Left Thumb Comments Opposition to little finger is 3/5, otherwise 5/5 Hand Public Relations Player/Pinch Strength Hand Dominance Hand Dominance Left Hand Strength Right Comments Public Relations Player strength in kgs: 35, 32, 32 (avg is 33 kg) Left Comments Public Relations Player strength in kgs: 26, 28, 28 (avg is 27 kg) PT-OP-Q Treatments Start: 09/26/20 11:54 Freq: Status: Active Protocol: Document 11/04/20 14:22 LRN (Rec: 11/04/20 15:06 LRN [id number]) Therapeutic Exercises Sitting Exercises L pronation stretch Sitting Exercise Name L pronation stretch f/b active stretch Side left Equipment Used Without hammer Reps/Minutes 4' Comments Much phys cuing needed for self stretch. Forearm sup/pronation Sitting Exercise Name Forearm supination AROM Side left Reps/Minutes 3' Comments 75-80 deg's with elbow at side . Gripping Sitting Exercise Name Digiflex Squeezing - 5lb and fist making Side left Reps/Minutes 3' Finger AB strengthening Sitting Exercise Name Active digits 2-5 finger AB/AD Side left Equipment Used rubber band wrapped around each finger Reps/Minutes 13' Comments AB index finger is 20 deg's bilaterally. L thumb flex Sitting Exercise Name AAROM, ARROM Side left Resistance Manual resistance Reps/Minutes 5' L thumb AB strengthening Sitting Exercise Name AAROM, ARROM Side left Resistance Manual resistance Reps/Minutes 10' Comments Extra time to focus on small adjustments to obtain full thumb AB motion Opposition Sitting Exercise Name Opposition w/little finger - Assistive & active Side left Reps/Minutes 5' Comments Much assist to thumb for movement. Pt unable to peform properly PT-OP-T Assessment and Plan Start: 09/26/20 11:54 Freq: Status: Active Protocol: Document 11/04/20 14:22 LRN (Rec: 11/04/20 15:06 LRN [id number]) Physical Therapy Assessment Goals Three Impairment Decreased L hand and finger strength (see below) Impairment UE QuickDASH score of 27.27 ( 20-39% impaired) Public Relations Player strength (kgs with 3 trials): 26, 28, 28 left; 35, 32, 32 right. Index finger AD: 3/5 left, 5/ 5 right. Opposition: thumb and little finger: 2+/5 left, 5/5 right. Short Term Goal (STG) Improve L hand strength with improved function per UE QuickDASH score of 19 or less with 1-19% impairment. STG Duration 10/27/20 Mcfp Goal (LTG) Pt able to zip pants or button shirt. (10/24/20: Better able to button shirt) LTG Duration 11/28/20 (10/24/20: Improving ) Two Impairment Decreased L wrist, index finger (PIP/DIP) AROM Impairment AROM: Wrist (in deg's): Flex: 70 L, 70 R; Ext: 42 L, 53 R; UD: 17 L, 28 R; RD: 8 L, 10 R. Index finger active flexion ( in deg's): PIP jt: 88 left, 96 right DIP jt: 38 left, 50 right. Short Term Goal (STG) Pt will be able to hold his toothbrush to brush his teeth with ease (not awkward). (10/24/20: Awkward, pt reports he usually brushes his teeth with the R arm). STG Duration 10/27/20 Environmental Coordinator Goal (LTG) Improve L wrist & index finger AROM (10/27/20: L wrist (in deg's) : Flex: 60 L ; Ext: 41 L; UD: 30 L; RD: 10 L. LTG Duration 11/28/20 (10/27/20: Progressing) One Impairment Lacks appropriate self care HEP Short Term Goal (STG) Pt will be independent in wrist (ext, UD/RD) and finger (flex, ext, AB/AD, opposition) AROM ex's. (09/29/20: L Thumb AB & thumb flex passive & active stretch & manual resistive thumb flexion to neutral: 10/20/20: HEP: UD/RD, flex/ext isometrics, reviewed Fiona thumb flex, & strengthening of finger AB/AD/Flex/Ext) STG Duration 10/27/20 (10/20/20: MET GOAL) Environmental Coordinator Goal (LTG) Pt will be independent in a self care HEP (AROM & strengthening ex's for the L forearm, wrist, fingers. (10/24/20: I/S pt in sup/pron ROM and strengthening ex's) LTG Duration 11/28/20 (10/24/20: Progressed) Assessment Summary Assessment Sensation appears to be returning in L thumb pad. No sharp pains in L forearm during opposition strengthening; therefore probably improved strength of supinator/pronator teres. Weak L thumb flex, AB & Opposition, & finger AB/AD's. Physical Therapy Plan Frequency and Duration Frequency of Treatment 1x/Week Plan of Care Start Date 09/29/20 Plan of Care End Date 11/28/20 Next Visit Focus/Plan Next Note Type Treatment Note Next Visit Plan Decreased therapy to 1x/week. Assess wrist ROM. Review and continue retraining /strengthening of L hand opposition with thumb and 5th digit. Compression of radial/unar interosseous during Public Relations Player/twist ex (MWM) to minimize sharp pain in forearm if needed. Add Putty on table strengthening. Assess & Issue HEP wrist/ forearm stretching (monitor for sensation changes) Review concentric strengthening if tolerates 2#. If tolerated, ther ex for intrinsic of index, middle and little fingers; Monitor responses to L forearm , wrist, hypothenar, and opposition with little finger ROM/strengthening.
--- NOTE | 2020-11-13 13:48 | PT.OTN ---
Current Diagnoses Carpal tunnel syndrome, left upper limb (11/13/20) Pain in left wrist (11/13/20) Stiffness of left wrist, not elsewhere classified (11/13/20) Muscle weakness (generalized) (11/13/20) Physical Therapy Treatment Note PT-OP-A Visit Information Start: 09/26/20 11:54 Freq: Status: Active Protocol: Document 11/13/20 13:03 SP (Rec: 11/13/20 15:38 SP [id number]) Out-Patient Physical Therapy Visit Information Visit Information Visit Type Treatment Note Visit Start Time 13:03 Visit Stop Time 13:48 Total Visit Minutes 45 Visit Number 7 Number of PULP BLEACHER Visits 1 Evaluation Information Evaluation Date 09/29/20 Precautions Precautions History of depression History of sensation changes in R hand after nighttime sleeping. Osteoarthritis of hands. 2 Prostate Biopsies, both benign (09/2019, 07/2020). PT-OP-B Current Condition Start: 09/26/20 11:54 Freq: Status: Active Protocol: Document 09/29/20 14:28 LRN (Rec: 09/29/20 16:46 LRN [id number]) Current Condition History of Current Condition Onset Date 08/10/20 Current Complaints Can't feel his hand. History of Current Condition L hand was almost severed. L hand was compressed by metal by a boat raz assembly pressing his hand into his boat. 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 No broken bones. Was able to move hand, no blood, only couldn't feel hand but could tell he could move his L hand. Has been elevating his hand, has been using cold pack for swelling, and heat to stimulate blood flow. Went to see his doctor a couple weeks after injury. Has been doing hand yoga, keeping his hands/ fingers moving. His L little finger and ring finger was numb, now he can feel his little finger and the lateral side of his ring finger. Index & middle finger is numb, thumb lateral side is starting to tingle, medial and thumb pad side is numb. Has a history of numbness of R hand while sleeping that has worsened since injury. Now feels under the biceps is burning. Prior Treatments and Tests None. Future Testing and Treatments Planned None Treatment Goals Patient/Caregiver Goals Pt goal: is to find out what he should be doing to help progress his L hand to normal. Learn what specific things he should be doing that he is not doing to speed up healing process. Improve ability to use his fingers to zip up pants and button his shirt. 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 Current Functional Impairments (Reported) Functional Limitations- ADL's Can't zip pants or button shirt because can't feel index finger (no pain in fingers). Limited with anything that requires use of thumb/ forefinger (brushing teeth) is awkward. Functional Limitations- Work/School Working FT, awkward with doing detail work, like writing ( can write but not able to feel ). Personal Factors Other Personal Factors That May Effect Depression Therapy/Recovery History of sensation changes in R hand after nighttime sleeping. Osteoarthritis of hands. 2 Prostate Biopsies, both benign (09/2019, 07/2020). PT-OP-C Subjective Start: 09/26/20 11:54 Freq: Status: Active Protocol: Document 11/13/20 13:03 SP (Rec: 11/13/20 15:38 SP [id number]) OP-PT Subjective Patient Comments Patient Comments Pt states feels like nerves waking up and thawing out throuhout LUE fingers 5- PT-OP-H Neuro Start: 09/26/20 11:54 Freq: Status: Active Protocol: Document 09/29/20 14:28 LRN (Rec: 09/29/20 16:46 LRN [id number]) Sensation Evaluation Gross Sensation Gross Sensation Left UE Impaired Sensation Description Numbness,Tingling Comments Summary Comments See Pain assessment Grid that pt noted decreased sensation vs numbness (sectioins of the median nerve distribution). PT-OP-J Posture/Palpation/Skin Start: 09/26/20 11:54 Freq: Status: Active Protocol: Document 09/29/20 14:28 LRN (Rec: 09/29/20 16:46 LRN [id number]) Posture Evaluation Comments Posture Comments Forward head, Winged scapula bilaterally, L shoulder rolled forward and elevated, bilaterally arms internally rotated. Palpation Assessment Location L wrist Palpation Location L wrist Palpation Findings Edema PT-OP-K Range of Motion Start: 09/26/20 11:54 Freq: Status: Active Protocol: Document 11/04/20 14:22 LRN (Rec: 11/04/20 15:06 LRN [id number]) Elbow/Forearm Range of Motion Elbow/Forearm Left Active Elbow/Forearm ROM WFL No Pronation (degrees) 77 Supination (degrees) 80 PT-OP-L Special Tests Start: 09/26/20 11:54 Freq: Status: Active Protocol: Document 09/29/20 14:28 LRN (Rec: 09/29/20 16:46 LRN [id number]) Special Tests Wrist/Hand Special Tests Phalens Test Results L wrist unknown Comments L hand numb with no change in numbness Tinels Test Results L wrist is positive Comments Tingling onset PT-OP-M Strength Start: 09/26/20 11:54 Freq: Status: Active Protocol: Document 09/29/20 14:28 LRN (Rec: 09/29/20 16:46 LRN [id number]) Elbow/Forearm Strength Elbow and Forearm Manual Muscle Testing Right Comments Generally 5/5 Left Comments Generally 5/5 Wrist Strength Wrist Manual Muscle Testing Right Comments Generally 5/5 Left Comments Generally 5/5 as tested within pt's available range. Finger/Thumb Strength Finger Manual Muscle Testing Right Second Adduction 5 Normal Left Second Adduction 3 Fair Right Thumb Comments Opposition to all finger is normal. Left Thumb Comments Opposition to little finger is 3/5, otherwise 5/5 Hand Can Striper/Pinch Strength Hand Dominance Hand Dominance Left Hand Strength Right Comments Can Striper strength in kgs: 35, 32, 32 (avg is 33 kg) Left Comments Can Striper strength in kgs: 26, 28, 28 (avg is 27 kg) PT-OP-Q Treatments Start: 09/26/20 11:54 Freq: Status: Active Protocol: Document 11/13/20 13:03 SP (Rec: 11/13/20 15:38 SP [id number]) Therapeutic Exercises Sitting Exercises L 5th finger flexion Sitting Exercise Name added to HEP Side left Resistance rubber band Equipment Used curled finger around end of table against resistance Reps/Minutes x10 reps Comments in pronated position rested on table, flexion against resistance L thumb flex Sitting Exercise Name AAROM, ARROM Side left Resistance Manual resistance L thumb AB strengthening Sitting Exercise Name AAROM, ARROM Side left Resistance Manual resistance Comments cued focus on small adjustments to obtain full thumb AB motion Opposition Sitting Exercise Name L Opposition w/little finger - Assistive & active Side left Resistance AROM Comments able post 5th finger flexion Standing Exercises wall posture Standing Exercise Name added to HEP Equipment Used theracane Reps/Minutes aware of shld down/ back Comments pelvis, shlds, posterior head on wall, cued TA and LS toward wall thercane Standing Exercise Name CS post musculature: ES, paraspinal, UT Side bilateral Resistance added to HEP Equipment Used theracane Reps/Minutes 10 min Comments MWM head nod/ turn ulnar and median nerve glilde Standing Exercise Name added to HEP Resistance L>R Reps/Minutes x10 Comments good feedback response Manual Therapy Treatment Soft Tissue Mobilization thenar eminence Body Location L 1st digit Mobilization Type Strumming Intensity/Depth Moderate Body Position Sitting Comments improved 1st digit abd Instructed on self. Self-Care/Home Management Treatment Education Patient Education Home Exercise Program Other Education Initiated ulnar and median nerve glide in standing L>R, wall posture w/ scap neutral back down and TA awareness w/ chin nods: improved decrease posterior neck tension post use of theracane time spent instruction STMs MWM. PT-OP-T Assessment and Plan Start: 09/26/20 11:54 Freq: Status: Active Protocol: Document 11/13/20 13:03 SP (Rec: 11/13/20 15:38 SP [id number]) Physical Therapy Assessment Goals Three Impairment Decreased L hand and finger strength (see below) Impairment UE QuickDASH score of 27.27 ( 20-39% impaired) Can Striper strength (kgs with 3 trials): 26, 28, 28 left; 35, 32, 32 right. Index finger AD: 3/5 left, 5/ 5 right. Opposition: thumb and little finger: 2+/5 left, 5/5 right. Short Term Goal (STG) Improve L hand strength with improved function per UE QuickDASH score of 19 or less with 1-19% impairment. STG Duration 10/27/20 Scale And Skip Car Operator Goal (LTG) Pt able to zip pants or button shirt. (10/24/20: Better able to button shirt) LTG Duration 11/28/20 (10/24/20: Improving ) Two Impairment Decreased L wrist, index finger (PIP/DIP) AROM Impairment AROM: Wrist (in deg's): Flex: 70 L, 70 R; Ext: 42 L, 53 R; UD: 17 L, 28 R; RD: 8 L, 10 R. Index finger active flexion ( in deg's): PIP jt: 88 left, 96 right DIP jt: 38 left, 50 right. Short Term Goal (STG) Pt will be able to hold his toothbrush to brush his teeth with ease (not awkward). (10/24/20: Awkward, pt reports he usually brushes his teeth with the R arm). STG Duration 10/27/20 Scale And Skip Car Operator Goal (LTG) Improve L wrist & index finger AROM (10/27/20: L wrist (in deg's) : Flex: 60 L ; Ext: 41 L; UD: 30 L; RD: 10 L. LTG Duration 11/28/20 (10/27/20: Progressing) One Impairment Lacks appropriate self care HEP Short Term Goal (STG) Pt will be independent in wrist (ext, UD/RD) and finger (flex, ext, AB/AD, opposition) AROM ex's. (09/29/20: L Thumb AB & thumb flex passive & active stretch & manual resistive thumb flexion to neutral: 10/20/20: HEP: UD/RD, flex/ext isometrics, reviewed Fiona thumb flex, & strengthening of finger AB/AD/Flex/Ext) STG Duration 10/27/20 (10/20/20: MET GOAL) Residential Goal (LTG) Pt will be independent in a self care HEP (AROM & strengthening ex's for the L forearm, wrist, fingers. (10/24/20: I/S pt in sup/pron ROM and strengthening ex's) 11/13/20: added ulnar and median nerve glide, self STMs using theracane MWM neck chin nod/ turn, wall posture and L 5th finger flexion against resistance with improved opposition toward 1st MTP. LTG Duration 11/28/20 (11/13/20: Progressed) Assessment Summary Assessment Pt responded well to L 1st MTP review AROM- AAROM- ARROM, initiated 5th resisted flexion to gain opposition AROM and med/ ulnar nerve glide, wall posture and self STMS MWM CS posterior musculature. Pt reported improve ROM in posture at wall end of tx. Physical Therapy Plan Frequency and Duration Frequency of Treatment 1x/Week Plan of Care Start Date 09/29/20 Plan of Care End Date 11/28/20 Therapeutic Interventions Therapeutic Interventions Home Exercise Program,Joint Mobilizations,Manual Therapy, Patient/Caregiver Education, Self-Care/Home Management,Soft Tissue Mobilization,Taping, Therapeutic Exercises Modalities Cold Pack/Ice Massage,Hot Packs,Ultrasound Next Visit Focus/Plan Next Note Type Treatment Note Next Visit Plan Assess response to wall posture/med & ulnar n. glides, self STMs CS, L 5th finger resisted flexion. Review theraputty and rubberband strengthening. POC: Assess wrist ROM. Review and continue retraining /strengthening of L hand opposition with thumb and 5th digit. Compression of radial/unar interosseous during Can Striper/twist ex (MWM) to minimize sharp pain in forearm if needed. Add Putty on table strengthening. Assess & Issue HEP wrist/ forearm stretching (monitor for sensation changes) Review concentric strengthening if tolerates 2#. If tolerated, ther ex for intrinsic of index, middle and little fingers; Monitor responses to L forearm , wrist, hypothenar, and opposition with little finger ROM/strengthening.
--- NOTE | 2020-11-20 16:21 | PT.OTN ---
Current Diagnoses Carpal tunnel syndrome, left upper limb (11/20/20) Pain in left wrist (11/20/20) Stiffness of left wrist, not elsewhere classified (11/20/20) Muscle weakness (generalized) (11/20/20) Physical Therapy Treatment Note PT-OP-A Visit Information Start: 09/26/20 11:54 Freq: Status: Active Protocol: Document 11/20/20 12:45 LRN (Rec: 11/20/20 16:20 LRN [id number]) Out-Patient Physical Therapy Visit Information Visit Information Visit Type Treatment Note Visit Start Time 12:45 Visit Stop Time 13:25 Total Visit Minutes 40 Visit Number 8 Evaluation Information Evaluation Date 09/29/20 Precautions Precautions History of depression History of sensation changes in R hand after nighttime sleeping. Osteoarthritis of hands. 2 Prostate Biopsies, both benign (09/2019, 07/2020). PT-OP-B Current Condition Start: 09/26/20 11:54 Freq: Status: Active Protocol: Document 09/29/20 14:28 LRN (Rec: 09/29/20 16:46 LRN [id number]) Current Condition History of Current Condition Onset Date 08/10/20 Current Complaints Can't feel his hand. History of Current Condition L hand was almost severed. L hand was compressed by metal by a boat raz assembly pressing his hand into his boat. 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 No broken bones. Was able to move hand, no blood, only couldn't feel hand but could tell he could move his L hand. Has been elevating his hand, has been using cold pack for swelling, and heat to stimulate blood flow. Went to see his doctor a couple weeks after injury. Has been doing hand yoga, keeping his hands/ fingers moving. His L little finger and ring finger was numb, now he can feel his little finger and the lateral side of his ring finger. Index & middle finger is numb, thumb lateral side is starting to tingle, medial and thumb pad side is numb. Has a history of numbness of R hand while sleeping that has worsened since injury. Now feels under the biceps is burning. Prior Treatments and Tests None. Future Testing and Treatments Planned None Treatment Goals Patient/Caregiver Goals Pt goal: is to find out what he should be doing to help progress his L hand to normal. Learn what specific things he should be doing that he is not doing to speed up healing process. Improve ability to use his fingers to zip up pants and button his shirt. 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 Current Functional Impairments (Reported) Functional Limitations- ADL's Can't zip pants or button shirt because can't feel index finger (no pain in fingers). Limited with anything that requires use of thumb/ forefinger (brushing teeth) is awkward. Functional Limitations- Work/School Working FT, awkward with doing detail work, like writing ( can write but not able to feel ). Personal Factors Other Personal Factors That May Effect Depression Therapy/Recovery History of sensation changes in R hand after nighttime sleeping. Osteoarthritis of hands. 2 Prostate Biopsies, both benign (09/2019, 07/2020). PT-OP-C Subjective Start: 09/26/20 11:54 Freq: Status: Active Protocol: Document 11/20/20 12:45 LRN (Rec: 11/20/20 16:20 LRN [id number]) OP-PT Subjective Patient Comments Patient Comments Making progress. Can reach L thumb tip to little finger tip now. Slowly can actrually feel tingling in thumb, index and middle finger tip of pads. No noteable strength weakness. Is looking forward to being able to type. Sates the last ex of stretch out arms is helpful to stretch. PT-OP-H Neuro Start: 09/26/20 11:54 Freq: Status: Active Protocol: Document 09/29/20 14:28 LRN (Rec: 09/29/20 16:46 LRN [id number]) Sensation Evaluation Gross Sensation Gross Sensation Left UE Impaired Sensation Description Numbness,Tingling Comments Summary Comments See Pain assessment Grid that pt noted decreased sensation vs numbness (sectioins of the median nerve distribution). PT-OP-J Posture/Palpation/Skin Start: 09/26/20 11:54 Freq: Status: Active Protocol: Document 09/29/20 14:28 LRN (Rec: 09/29/20 16:46 LRN [id number]) Posture Evaluation Comments Posture Comments Forward head, Winged scapula bilaterally, L shoulder rolled forward and elevated, bilaterally arms internally rotated. Palpation Assessment Location L wrist Palpation Location L wrist Palpation Findings Edema PT-OP-K Range of Motion Start: 09/26/20 11:54 Freq: Status: Active Protocol: Document 11/20/20 12:45 LRN (Rec: 11/20/20 16:20 LRN [id number]) Thumb Goniometric Range of Motion Thumb L thumb Comments Opposition to 5th Digit Tip ( cm): 0.5. (Right is 0 cm) Opposition to 5th Digit Base ( cm): 1 cm (Right is 0.3cm). PT-OP-L Special Tests Start: 09/26/20 11:54 Freq: Status: Active Protocol: Document 09/29/20 14:28 LRN (Rec: 09/29/20 16:46 LRN [id number]) Special Tests Wrist/Hand Special Tests Phalens Test Results L wrist unknown Comments L hand numb with no change in numbness Tinels Test Results L wrist is positive Comments Tingling onset PT-OP-M Strength Start: 09/26/20 11:54 Freq: Status: Active Protocol: Document 09/29/20 14:28 LRN (Rec: 09/29/20 16:46 LRN [id number]) Elbow/Forearm Strength Elbow and Forearm Manual Muscle Testing Right Comments Generally 5/5 Left Comments Generally 5/5 Wrist Strength Wrist Manual Muscle Testing Right Comments Generally 5/5 Left Comments Generally 5/5 as tested within pt's available range. Finger/Thumb Strength Finger Manual Muscle Testing Right Second Adduction 5 Normal Left Second Adduction 3 Fair Right Thumb Comments Opposition to all finger is normal. Left Thumb Comments Opposition to little finger is 3/5, otherwise 5/5 Hand Valver/Pinch Strength Hand Dominance Hand Dominance Left Hand Strength Right Comments Valver strength in kgs: 35, 32, 32 (avg is 33 kg) Left Comments Valver strength in kgs: 26, 28, 28 (avg is 27 kg) PT-OP-Q Treatments Start: 09/26/20 11:54 Freq: Status: Active Protocol: Document 11/20/20 12:45 LRN (Rec: 11/20/20 16:20 LRN [id number]) Therapeutic Exercises Supine Exercises Ulnar N stetch Supine Exercise Name Ulnar nerve stretch: arm straight>sup forearm>wrist ext Side left Reps/Minutes 4' Comments Extra time for determining max stretch and for trying 3 differeint posiiton Sitting Exercises L 5th finger flexion Side left Resistance manual Reps/Minutes 8' Comments in pronated position rested on table, flexion against resistance Opposition Sitting Exercise Name L Opposition w/little finger - Assistive & active Side left Resistance AROM Reps/Minutes 10' Comments Specific MWM to train 5th digit and thumb proper motion. Standing Exercises wall posture Standing Exercise Name added to HEP Equipment Used theracane Reps/Minutes aware of shld down/ back Comments pelvis, shlds, posterior head on wall, cued TA and LS toward wall thercane Standing Exercise Name CS post musculature: ES, paraspinal, UT Side bilateral Resistance added to HEP Equipment Used theracane Reps/Minutes 6' Comments MWM head nod/ turn ulnar and median nerve glilde Standing Exercise Name Ulnar/Median n glide as for HEP Resistance L>R Reps/Minutes 8' Comments Worked on proper positioning and use of multipledifferent mvmts for gliding PT-OP-T Assessment and Plan Start: 09/26/20 11:54 Freq: Status: Active Protocol: Document 11/20/20 12:45 LRN (Rec: 11/20/20 16:20 LRN [id number]) Physical Therapy Assessment Goals Three Impairment Decreased L hand and finger strength (see below) Impairment UE QuickDASH score of 27.27 ( 20-39% impaired) Valver strength (kgs with 3 trials): 26, 28, 28 left; 35, 32, 32 right. Index finger AD: 3/5 left, 5/ 5 right. Opposition: thumb and little finger: 2+/5 left, 5/5 right. Short Term Goal (STG) Improve L hand strength with improved function per UE QuickDASH score of 19 or less with 1-19% impairment. STG Duration 10/27/20 Manager Market Goal (LTG) Pt able to zip pants or button shirt. (10/24/20: Better able to button shirt) LTG Duration 11/28/20 (10/24/20: Improving ) Two Impairment Decreased L wrist, index finger (PIP/DIP) AROM Impairment AROM: Wrist (in deg's): Flex: 70 L, 70 R; Ext: 42 L, 53 R; UD: 17 L, 28 R; RD: 8 L, 10 R. Index finger active flexion ( in deg's): PIP jt: 88 left, 96 right DIP jt: 38 left, 50 right. Short Term Goal (STG) Pt will be able to hold his toothbrush to brush his teeth with ease (not awkward). (10/24/20: Awkward, pt reports he usually brushes his teeth with the R arm). STG Duration 10/27/20 Correction Goal (LTG) Improve L wrist & index finger AROM (10/27/20: L wrist (in deg's) : Flex: 60 L ; Ext: 41 L; UD: 30 L; RD: 10 L. LTG Duration 11/28/20 (10/27/20: Progressing) One Impairment Lacks appropriate self care HEP Short Term Goal (STG) Pt will be independent in wrist (ext, UD/RD) and finger (flex, ext, AB/AD, opposition) AROM ex's. (09/29/20: L Thumb AB & thumb flex passive & active stretch & manual resistive thumb flexion to neutral: 10/20/20: HEP: UD/RD, flex/ext isometrics, reviewed Fiona thumb flex, & strengthening of finger AB/AD/Flex/Ext) STG Duration 10/27/20 (10/20/20: MET GOAL) Correction Goal (LTG) Pt will be independent in a self care HEP (AROM & strengthening ex's for the L forearm, wrist, fingers. (10/24/20: I/S pt in sup/pron ROM and strengthening ex's) 11/13/20: added ulnar and median nerve glide, self STMs using theracane MWM neck chin nod/ turn, wall posture and L 5th finger flexion against resistance with improved opposition toward 1st MTP. LTG Duration 11/28/20 (11/13/20: Progressed) Assessment Summary Assessment Pt finding wall posture ex feeling good to body. Ulnar and median nerve glides makes pt feel good with stretching L arm. Fairly good recall of Theracane, pt needed cuing to start to use properly. Pt appears to have weakness of L hand hypothernar, limiting opposition of thumb to 5th digit. He has some weakness of 5th digit flexion. Physical Therapy Plan Frequency and Duration Frequency of Treatment 1x/Week Plan of Care Start Date 09/29/20 Plan of Care End Date 11/28/20 Next Visit Focus/Plan Next Note Type Progress Note Next Visit Plan New POC needed, UE QuickDASH. Assess & retraining/ strengthening of L hand opposition with thumb and 5th digit change. Review theraputty (Putty on table) and rubberband strengthening. Assess wrist ROM and start ex to promote teethbrushing motion (body blade). Start coordination training ( buttoning, picking up small ojects and manipulating). Valver/twist ex (MWM) to minimize sharp pain in forearm if needed (Compression of radial/unar interosseous during). Assess & Issue HEP wrist/ forearm stretching (monitor for sensation changes) New POC needed. If tolerated, strengthening for intrinsic of index, middle and little fingers (LTG 1); Monitor for L forearm, wrist, hypothenar, and opposition with little finger ROM/ strengthening. Review concentric strengthening if tolerates 2#.
--- NOTE | 2020-11-27 15:45 | PT.OTN ---
Current Diagnoses Carpal tunnel syndrome, left upper limb (11/27/20) Pain in left wrist (11/27/20) Stiffness of left wrist, not elsewhere classified (11/27/20) Muscle weakness (generalized) (11/27/20) Physical Therapy Treatment Note PT-OP-A Visit Information Start: 09/26/20 11:54 Freq: Status: Active Protocol: Document 11/27/20 14:17 LRN (Rec: 11/27/20 15:45 LRN [id number]) Out-Patient Physical Therapy Visit Information Visit Information Visit Type Treatment Note Visit Start Time 14:17 Visit Stop Time 15:09 Total Visit Minutes 52 Visit Number 9 Evaluation Information Evaluation Date 09/29/20 Precautions Precautions History of depression History of sensation changes in R hand after nighttime sleeping. Osteoarthritis of hands. 2 Prostate Biopsies, both benign (09/2019, 07/2020). PT-OP-B Current Condition Start: 09/26/20 11:54 Freq: Status: Active Protocol: Document 09/29/20 14:28 LRN (Rec: 09/29/20 16:46 LRN [id number]) Current Condition History of Current Condition Onset Date 08/10/20 Current Complaints Can't feel his hand. History of Current Condition L hand was almost severed. L hand was compressed by metal by a boat raz assembly pressing his hand into his boat. 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 No broken bones. Was able to move hand, no blood, only couldn't feel hand but could tell he could move his L hand. Has been elevating his hand, has been using cold pack for swelling, and heat to stimulate blood flow. Went to see his doctor a couple weeks after injury. Has been doing hand yoga, keeping his hands/ fingers moving. His L little finger and ring finger was numb, now he can feel his little finger and the lateral side of his ring finger. Index & middle finger is numb, thumb lateral side is starting to tingle, medial and thumb pad side is numb. Has a history of numbness of R hand while sleeping that has worsened since injury. Now feels under the biceps is burning. Prior Treatments and Tests None. Future Testing and Treatments Planned None Treatment Goals Patient/Caregiver Goals Pt goal: is to find out what he should be doing to help progress his L hand to normal. Learn what specific things he should be doing that he is not doing to speed up healing process. Improve ability to use his fingers to zip up pants and button his shirt. 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 Current Functional Impairments (Reported) Functional Limitations- ADL's Can't zip pants or button shirt because can't feel index finger (no pain in fingers). Limited with anything that requires use of thumb/ forefinger (brushing teeth) is awkward. Functional Limitations- Work/School Working FT, awkward with doing detail work, like writing ( can write but not able to feel ). Personal Factors Other Personal Factors That May Effect Depression Therapy/Recovery History of sensation changes in R hand after nighttime sleeping. Osteoarthritis of hands. 2 Prostate Biopsies, both benign (09/2019, 07/2020). PT-OP-C Subjective Start: 09/26/20 11:54 Freq: Status: Active Protocol: Document 11/27/20 14:17 LRN (Rec: 11/27/20 15:45 LRN [id number]) OP-PT Subjective Patient Comments Patient Comments Still getting tingle in the L thumb, index and middle finger . Now can feel pressure differential when pressing thumb to finger. When buttoning her shirt he can feel the button coming through the hole. Hopes to be able to golf again, but his L index finger still feels odd, byut he thinks he can golf if he doesn't interlock the L index and R little finger. Patient Questionnaires Quick Dash- Upper Extremity Quick Dash UE Score 15.9 Quick Dash UE Impairment 1 to 19% Impaired (Score 1-19) PT-OP-H Neuro Start: 09/26/20 11:54 Freq: Status: Active Protocol: Document 09/29/20 14:28 LRN (Rec: 09/29/20 16:46 LRN [id number]) Sensation Evaluation Gross Sensation Gross Sensation Left UE Impaired Sensation Description Numbness,Tingling Comments Summary Comments See Pain assessment Grid that pt noted decreased sensation vs numbness (sectioins of the median nerve distribution). PT-OP-J Posture/Palpation/Skin Start: 09/26/20 11:54 Freq: Status: Active Protocol: Document 09/29/20 14:28 LRN (Rec: 09/29/20 16:46 LRN [id number]) Posture Evaluation Comments Posture Comments Forward head, Winged scapula bilaterally, L shoulder rolled forward and elevated, bilaterally arms internally rotated. Palpation Assessment Location L wrist Palpation Location L wrist Palpation Findings Edema PT-OP-K Range of Motion Start: 09/26/20 11:54 Freq: Status: Active Protocol: Document 11/27/20 14:17 LRN (Rec: 11/27/20 15:45 LRN [id number]) Elbow/Forearm Range of Motion Elbow/Forearm Left Active ROM Testing Position Sitting Pronation (degrees) 64 Supination (degrees) 90 Comments Passive Pronation: 70 Wrist Goniometric Range of Motion Wrist Left Wrist ROM WFL No Flexion Active (degrees) 70 Flexion Passive (degrees) 80 Extension Active (degrees) 43 Extension Passive (degrees) 65 Ulnar Deviation Active (degrees) 32 Ulnar Deviation Passive (degrees) 34 Radial Deviation Active (degrees) 25 Radial Deviation Passive (degrees) 30 PT-OP-L Special Tests Start: 09/26/20 11:54 Freq: Status: Active Protocol: Document 09/29/20 14:28 LRN (Rec: 09/29/20 16:46 LRN [id number]) Special Tests Wrist/Hand Special Tests Phalens Test Results L wrist unknown Comments L hand numb with no change in numbness Tinels Test Results L wrist is positive Comments Tingling onset PT-OP-M Strength Start: 09/26/20 11:54 Freq: Status: Active Protocol: Document 11/27/20 14:17 LRN (Rec: 11/27/20 15:45 LRN [id number]) Hand Medicaid Business Analyst/Pinch Strength Hand Dominance Hand Dominance Left Hand Strength Right Comments Medicaid Business Analyst strength in kgs: 40, 38, 36 (avg is 38 kg) (on 2nd ring) Left Comments Medicaid Business Analyst strength in kgs: 38, 34, 35 (avg is 35.7 kg). (on 2nd ring) PT-OP-Q Treatments Start: 09/26/20 11:54 Freq: Status: Active Protocol: Document 11/27/20 14:17 LRN (Rec: 11/27/20 15:45 LRN [id number]) Therapeutic Exercises Sitting Exercises Finger dexterity ex Sitting Exercise Name Buttoning/unbuttoning Side left Reps/Minutes 3' L 5th finger flexion Side left Resistance manual Reps/Minutes 3' Comments in pronated position rested on table, flexion against resistance L pronation stretch Sitting Exercise Name L pronation stretch f/b active stretch Side left Equipment Used Without hammer Reps/Minutes 6' Comments AROM/PROM taken. Much phys cuing needed for self stretch. Forearm sup/pronation Sitting Exercise Name Forearm supination AROM Side left Reps/Minutes 3' Comments AROM taken. ROM is normal Gripping Sitting Exercise Name Gripping ex Side bilateral Reps/Minutes 4' Wrist UD Sitting Exercise Name Strengthening - active Side left Reps/Minutes 3' Comments AROM/PROM taken Wrist RD Sitting Exercise Name Stretching & AROM strengthening Side left Reps/Minutes 6' Comments AROM/PROM taken, no pain L thumb flex Sitting Exercise Name AAROM Side left Reps/Minutes 1' L thumb AB strengthening Sitting Exercise Name AAROM Side left Reps/Minutes 1' Opposition Sitting Exercise Name L Opposition w/little finger - Assistive & active Side left Resistance AROM Reps/Minutes 5' Comments Specific MWM to train 5th digit and thumb proper motion. L wrist ext stretch Sitting Exercise Name L wrist ext stretch with elbow slight bent & straight Side left Reps/Minutes 7' Comments AROM/PROM taken. PT-OP-T Assessment and Plan Start: 09/26/20 11:54 Freq: Status: Active Protocol: Document 11/27/20 14:17 LRN (Rec: 11/27/20 15:45 LRN [id number]) Physical Therapy Assessment Goals Three Impairment Decreased L hand and finger strength (see below) Impairment UE QuickDASH score of 27.27 ( 20-39% impaired) Medicaid Business Analyst strength (kgs with 3 trials): 26, 28, 28 left; 35, 32, 32 right. Index finger AD: 3/5 left, 5/ 5 right. Opposition: thumb and little finger: 2+/5 left, 5/5 right. Short Term Goal (STG) Improve L hand strength with improved function per UE QuickDASH score of 19 or less with 1-19% impairment. (11/27/20: UE QuickDASH score of 15.9) STG Duration 10/27/20 (11/27/20: MET GOAL) Prison Goal (LTG) Pt able to zip pants or button shirt. (10/24/20: Better able to button shirt, 11/27/20: Able to button shirt although can't feel the hole the button goes through, can feel the button) LTG Duration 11/28/20 (11/27/20: MET GOAL ) Two Impairment Decreased L wrist, index finger (PIP/DIP) AROM Impairment AROM: Wrist (in deg's): Flex: 70 L, 70 R; Ext: 42 L, 53 R; UD: 17 L, 28 R; RD: 8 L, 10 R. Index finger active flexion ( in deg's): PIP jt: 88 left, 96 right DIP jt: 38 left, 50 right. Short Term Goal (STG) Pt will be able to hold his toothbrush to brush his teeth with ease (not awkward). (11/27/20: 80% of normal, doesn't feel awkward to brush his teeth) (10/24/20: Awkward, pt reports he usually brushes his teeth with the R arm). STG Duration 10/27/20 (11/27/20: NOT MET GOAL, but improved 80%) Knuckle Strap Sewer Goal (LTG) Improve L wrist & index finger AROM (10/27/20: L wrist (in deg's) : Flex: 60 L ; Ext: 41 L; UD: 30 L; RD: 10 L) (11/27/20: L wrist (in deg's ): Flex: 70 L ; Ext: 43 L; UD: 32 L; RD: 25 L) LTG Duration 11/28/20 (11/27/20: MET GOAL ) One Impairment Lacks appropriate self care HEP Short Term Goal (STG) Pt will be independent in wrist (ext, UD/RD) and finger (flex, ext, AB/AD, opposition) AROM ex's. (09/29/20: L Thumb AB & thumb flex passive & active stretch & manual resistive thumb flexion to neutral: 10/20/20: HEP: UD/RD, flex/ext isometrics, reviewed Fiona thumb flex, & strengthening of finger AB/AD/Flex/Ext) STG Duration 10/27/20 (10/20/20: MET GOAL) Prison Goal (LTG) Pt will be independent in a self care HEP (AROM & strengthening ex's for the L forearm, wrist, fingers. (10/24/20: I/S pt in sup/pron ROM and strengthening ex's) 11/13/20: added ulnar and median nerve glide, self STMs using theracane MWM neck chin nod/ turn, wall posture and L 5th finger flexion against resistance with improved opposition toward 1st MTP. 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 Improved STG #2: Wrist AROM improved, coordination for brushing teeth is 80% improved . 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 Pt has decreased active L wrist ext ROM and is weak at end range. L wrist flexion mobility is improving. Pt has some mild decrease in coordination with brushing of teeth Physical Therapy Plan Discharge Physical Therapy Discharge Comments Pt has met most of his goals. He has a good understanding of his HEP and understands his recovery process will be slow and he is aware of where the focus of his home program will be. Pt is expected to do well on his HEP. Thank you for your referral.
== END 2020-12-18 14:37 ==
LOC: PHYS 14:15
PROVIDERS: PCP Family Medicine; Referring Provider Family Medicine; Visit Provider Family Medicine
DX: M25.532 Pain in left wrist (principal); G56.02 Carpal tunnel syndrome, left upper limb; M62.81 Muscle weakness (generalized); M25.632 Stiffness of left wrist, not elsewhere classified
CPT/HCPCS: 97110; 97140; 97162; 97535

== ENCOUNTER → 2021-05-18 15:08 | Outpatient (CLI) | payer MEDICARE, SELFPAY ==
--- NOTE | 2021-06-09 14:37 | PM.CARDMON.1 ---
Collar Shaper Operator Report Referral & Results Date Patient Seen: 05/18/21 Requesting provider: Justin Foley Indication: Palpitations Duration of monitoring (days): 14 Diary information: There were 2 patient triggered events both associated variably with sinus rhythm and PACs Data: Minimum heart rate identified was 37 beats per minute at 09:23 on 05/29/2021 Maximum sinus heart rate was 149 beats per minute at 15:47 05/23/2021 Maximum overall heart rate was 231 beats per minute at 11:05 on 05/31/2021 during a run of SVT Proximal 8.6% of identified beats were supraventricular ectopic in origin which would classify them as frequent Less than 1% of identified beats were ventricular ectopic in origin which would classify them as rare Patient had 15 runs of nonsustained ventricular tachycardia with the longest lasting 11 beats There were 819 episodes of supraventricular tachycardia with the fastest being a 9 beat run above with a rate of 231 beats per minute, the longest lasting 9 minutes 53 seconds at a rate of 119 beats per minute which might suggest more atrial tachycardia than true SVT There were no pauses of 3.0 seconds or longer or episodes of atrial fibrillation identified on this study Impression: This quality assurance monitor final demonstrates multiple episodes of nonsustained ventricular tachycardia up to 11 beats in duration There were also multiple episodes of SVT/atrial tachycardia including some rather rapid runs as above Patient also with frequent PACs Clinical correlation suggested
== END ==
PROVIDERS: PCP Family Medicine; Referring Provider Family Medicine; Visit Provider Family Medicine
DX: R00.2 Palpitations (principal)
CPT/HCPCS: 93246; 93248

== ENCOUNTER → 2021-06-19 07:03 | Outpatient (CLI) | payer MEDICARE, SELFPAY ==
[2021-06-19 08:43] LABS: Add Manual Diff / Slide Review NO; Basophils Absolute Auto 0 /uL (0-100); Basophils Percent Auto 0.4 % (0-2); Eosinophils Absolute Auto 100 /uL (0-450); Eosinophils Percent Auto 3.5 % (2-4); Hemoglobin 15.4 g/dL (13.5-17.5); Lymphocytes Absolute Auto 1700 /uL (1100-4500); Lymphocytes Percent Auto 40.1 % (25-40); Mean Corpuscular HGB Conc 33.5 % (30-36); Mean Corpuscular Hemoglobin 30.2 PG (26-34); Mean Corpuscular Volume 90.1 fL (80-100); Monocytes Absolute Auto 500 /uL (0-900); Monocytes Percent Auto 11.5 % (3-14); Neutrophils Absolute Auto 1900 /uL (1500-7000); Neutrophils Percent Auto 44.5 % (50-75); Platelet Count 228 X10^3/uL (150-400); Red Cell Distribution Width 13.3 % (11.6-14.8); White Blood Cell Count 4.3 X10^3/uL (4.5-11.0)
[2021-06-19 08:57] LABS: Alanine Aminotransferase 27 IU/L (<50); Albumin 4.3 g/dL (3.5-5.0); Albumin Globulin Ratio 1.5 (1.0-2.8); Alkaline Phosphatase 61 U/L (38-126); Aspartate Aminotransferase 32 IU/L (17-59); BUN Creatinine Ratio 14.7 (6-22); Bilirubin Total 0.9 mg/dL (0.2-1.3); Blood Urea Nitrogen 15 mg/dL (9-20); Calcium 8.9 mg/dL (8.4-10.2); Carbon Dioxide 26 mmol/L (22-32); Chloride 108 mmol/L (98-107); Cholesterol 215 mg/dL (140-199); Estimated Glomerular Filt Rate > 60 mL/min (>60); Globulin 2.9 g/dL (1.7-4.1); Glucose 89 mg/dL (80-110); HDL Cholesterol 43 mg/dL (40-60); HEMOLYSIS < 15 (0-50); Hemoglobin A1C% w Est Avg Glu 5.6 % (4.0-6.0); LDL Cholesterol Calculated 135 mg/dL (<100); Magnesium 2.1 mg/dL (1.6-2.3); Potassium 4.4 mmol/L (3.4-5.1); Sodium 139 mmol/L (137-145); Total Protein 7.2 g/dL (6.3-8.2); Triglycerides 187 mg/dL (35-150)
[2021-06-19 09:14] LABS: Vitamin D 25 Hydroxy (D3) 67.7 ng/mL (30.0-100.0)
[2021-06-19 09:27] LABS: Microalbumi Creatinin Ratio Ur 6.9 ug/mg CR (<30); Microalbumin Urine Random 1.4 mg/dL (0-1.6)
[2021-06-19 09:30] LABS: Prostate Specific Antigen Scrn 11.4 ng/mL (0.1-4.0)
[2021-06-22 00:22] LABS: Zinc 90 ug/dL (44-115)
[2021-06-24 17:12] LABS: Vitamin C 2.1 mg/dL (0.4-2.0)
[2021-06-28 09:19] LABS: Percent Free Testosterone 2.22 % (1.50-4.20); Testosterone Total 477.7 ng/dL (264.0-916.0)
[2021-06-30 10:10] LABS: Fecal Immunochemical Test Negative (Negative)
== END ==
PROVIDERS: PCP Family Medicine; Referring Provider Family Medicine; Visit Provider Family Medicine
DX: E78.5 Hyperlipidemia, unspecified (principal); R03.0 Elevated blood-pressure reading, without diagnosis of hypertension; Z12.5 Encounter for screening for malignant neoplasm of prostate; E55.9 Vitamin D deficiency, unspecified; C61 Malignant neoplasm of prostate; R97.20 Elevated prostate specific antigen [PSA]; R00.2 Palpitations
CPT/HCPCS: 80053; 80061; 82043; 82180; 82274; 82306; 82570; 83036; 83735; 84402; 84403; 84443; 84630; 85025; G0103

== ENCOUNTER → 2022-08-06 08:36 | Outpatient (CLI) | payer MEDICARE, SELFPAY ==
[2022-08-06 10:36] LABS: Add Manual Diff / Slide Review NO; Basophils Absolute Auto 0 /uL (0-100); Basophils Percent Auto 0.5 % (0-2); Eosinophils Absolute Auto 100 /uL (0-450); Eosinophils Percent Auto 2.3 % (2-4); Hematocrit 46.7 % (41-53); Hemoglobin 15.9 g/dL (13.5-17.5); Lymphocytes Absolute Auto 1600 /uL (1100-4500); Lymphocytes Percent Auto 27.7 % (25-40); Mean Corpuscular Hemoglobin 30.6 PG (26-34); Mean Corpuscular Volume 90.2 fL (80-100); Monocytes Absolute Auto 600 /uL (0-900); Monocytes Percent Auto 10.8 % (3-14); Neutrophils Absolute Auto 3400 /uL (1500-7000); Neutrophils Percent Auto 58.7 % (50-75); Platelet Count 242 X10^3/uL (150-400); Red Blood Cell Count 5.17 X10^6/uL (4.5-5.9); Red Cell Distribution Width 13.2 % (11.6-14.8); White Blood Cell Count 5.7 X10^3/uL (4.5-11.0)
[2022-08-06 11:23] LABS: Alanine Aminotransferase 31 IU/L (<50); Albumin 4.3 g/dL (3.5-5.0); Albumin Globulin Ratio 1.4 (1.0-2.8); Alkaline Phosphatase 62 U/L (38-126); Aspartate Aminotransferase 29 IU/L (17-59); BUN Creatinine Ratio 11.8 (6-22); Bilirubin Total 0.9 mg/dL (0.2-1.3); Blood Urea Nitrogen 12 mg/dL (9-20); Calcium 9.1 mg/dL (8.4-10.2); Carbon Dioxide 28 mmol/L (22-32); Chloride 102 mmol/L (98-107); Cholesterol 214 mg/dL (140-199); Estimated Glomerular Filt Rate > 60 mL/min (>60); Glucose 88 mg/dL (80-110); HDL Cholesterol 49 mg/dL (40-60); HEMOLYSIS < 15 (0-50); LDL Cholesterol Calculated 127 mg/dL (<100); Potassium 4.3 mmol/L (3.4-5.1); Sodium 138 mmol/L (137-145); Total Protein 7.3 g/dL (6.3-8.2); Triglycerides 191 mg/dL (35-150)
[2022-08-06 11:36] LABS: Vitamin D 25 Hydroxy (D3) 50.5 ng/mL (30.0-100.0)
[2022-08-06 11:48] LABS: Prostate Specific Antigen Scrn 16.7 ng/mL (0.1-4.0)
[2022-08-06 11:49] LABS: TSH w/ Reflex to FT4 1.19 uIU/mL (0.47-4.68)
[2022-08-12 13:20] LABS: Vitamin C 1.2 mg/dL (0.4-2.0)
[2022-08-13 21:49] LABS: Percent Free Testosterone 2.81 % (1.50-4.20); Testosterone Free 9.93 ng/dL (5.00-21.00); Testosterone Total 353.4 ng/dL (264.0-916.0)
== END ==
PROVIDERS: PCP Family Medicine; Referring Provider Family Medicine; Visit Provider Family Medicine
DX: C61 Malignant neoplasm of prostate (principal); E78.5 Hyperlipidemia, unspecified; Z12.5 Encounter for screening for malignant neoplasm of prostate; E55.9 Vitamin D deficiency, unspecified; K63.5 Polyp of colon; N20.0 Calculus of kidney; E54 Ascorbic acid deficiency; R03.0 Elevated blood-pressure reading, without diagnosis of hypertension; R00.2 Palpitations; R97.20 Elevated prostate specific antigen [PSA]
CPT/HCPCS: 36415; 80053; 80061; 82180; 82306; 84402; 84403; 84443; 85025; G0103

== ENCOUNTER → 2022-10-18 07:54 | Outpatient (CLI) | payer MEDICARE, SELFPAY ==
[2022-10-18 09:54] LABS: Prostate Specific Antigen 17.3 ng/mL (0.10-4.00)
== END ==
PROVIDERS: PCP Family Medicine; Referring Provider Urology; Visit Provider Urology
DX: C61 Malignant neoplasm of prostate (principal)
CPT/HCPCS: 36415; 84153

== ENCOUNTER 2022-11-05 14:51 | Day surgery (SDC) | payer MEDICARE, SELFPAY ==
[2022-11-02 12:29] VITALS: BMI 29.2
[2022-11-05] VITALS (7 sets, daily range): BP systolic 127–190; BP diastolic 67–100; PULSE 61–74; RESP 12–18; TEMP 36.4–36.5; O2SAT 95–99; BMI 29.2
[2022-11-05] MEDS: LACTATED RINGERS 1,000 ML 42 ML IV (15:22)
--- NOTE | 2022-11-05 15:36 | P.HP_ITS ---
History of Present Illness History of Present Illness Date Patient Seen: 11/05/22 Time Patient Seen: 15:37 Chief complaint: [facility] [place] Narrative: 77-year-old man with a symptomatic reducible left inguinal hernia here for elective repair. He has a history of prostate cancer. History of a previous laparoscopic right inguinal hernia repair. [facility] Medical History Carpal tunnel syndrome of left wrist Chickenpox (~1956) Colon cancer screening Colon polyps (2014) Depression (2009) Elevated blood pressure reading Elevated PSA (2015) Hernia (~2013) Kidney stones (11/2016) Osteoarthritis (2013) Palpitations Prostate cancer Psoriasis (1956) Psoriatic arthritis (Unknown) Sinusitis Vitamin D deficiency Surgical History History of tonsillectomy (1967) Status post appendectomy (1955) Status post hernia repair (07/2014) Family History Father Hyperlipidemia Mother Cancer Social History Smoking Status: Never smoker Meds Home Medications and Allergies Home Medications Medication Instructions Recorded Confirmed Type cholecalciferol (vitamin D3) 125 ##0 05/20/17 09/21/22 History mcg (5,000 unit) capsule tadalafil 20 mg tablet (Cialis) 20 mg PO DAILY PRN sexual activity 08/06/22 09/21/22 Rx #30 tabs Allergies Allergy/AdvReac Type Severity Reaction Status Date / Time No Known Allergies Allergy Uncoded 09/21/22 09:03 Exam Narrative Exam Narrative: GENERAL: A well nourished, well developed adult, resting comfortably, in no acute distress. HEENT: Normocephalic, atraumatic. No scleral icterus CHEST: Rising symmetrically. No audible wheezes CARDIOVASCULAR: Warm and well perfused. Regular rate ABDOMEN: Reducible left inguinal hernia. Marked with my initials. EXTREMITIES: Normal tone and without edema. NEUROLOGIC: Moving all extremities spontaneously. No gross motor deficits. Assessment & Plan Assessment and plan (1) Left inguinal hernia: Status: Acute Assessment & Plan narrative: 77year old man history of prostate cancer with a symptomatic reducible left inguinal hernia, I described the abdominal wall defect causing their inguinal hernia. We discussed both operative and non operative management as well as both laparoscopic and open technique. Given his history of prostate cancer and the possibility that it is some point in the future he may require a prostatectomy and recommended open repair. Following discussion their preference is to proceed with a open repair. I described the technical details of the operation. We discussed the typical postoperative recovery including activity, pain control and wound care. I described the surgical risks associated with the operation including but not limited to wound infection, venous thrombosis, chronic pain, reoccurence, seroma, testicular injury, and . I described emergency return precautions for hernia incarceration. His questions have been answered. Open repair left inguinal hernia
--- NOTE | 2022-11-05 15:36 | P.OP_ITS ---
Operative Date/Time/Diagnoses Date of procedure: 11/05/22 Time of procedure: 17:05 Pre-op diagnosis: Left inguinal hernia Post-op diagnosis: same Procedure & Clinicians Procedure: Open left inguinal hernia repair Same procedure as scheduled: Yes Indications: 77-year-old man history of prostate cancer with a reducible symptomatic left inguinal hernia. Surgeon: Arnaldo Knox Click Yes if Unassisted: Yes Anesthesia Type: General Operative Notes Findings: Large direct hernia. Cord lipoma no indirect hernia Specimen(s): none sent Estimated Blood Loss (mL): 10 Procedure in detail: The patient was placed supine on the table and bilateral lower extremity compression devices were applied. Anesthesia was induced they were intubated with an LMA and received Ancef. A time-out was performed. They were prepped and draped in sterile fashion. The left external inguinal ring and the anterior superior iliac crest were identified and marked. 1 finger breath above the inguinal ligament the skin was infiltrated with 0.25% bupivacaine. The skin incision was made, the subcutaneous tissues were divided with electrocautery exposing the external oblique aponeurosis which was then opened along the direction of its fibers. Using blunt dissection the internal oblique aporneurosis was from the external oblique upper leaflet. The cord was carefully dissected away from the inguinal canal adjacent to the pubic tubercle. The cord including the vas deferens, testicular bloody supply, ilioguinal and genital nerve were encircled with a Dhruv drain. A large direct floor defect was identified and it was reduced into the abdomen and the internal oblique aporneuorsis was approximated to the inguinal ligament with Ethibond suture to reapproximate the floor over a plug of mesh. The cremasteric fibers surrounding the cord were divided adjacent to the internal ring. The vas deferens and the testicular vessels were preserved and protected. The cord contents were carefully explored. There was a small cord lipoma which was resected no evidence of indirect hernia. On the anterior medial aspect of the cord which was skeletonized away from the vas deferens and testicular blood supply. The indirect hernia was skeletonized back to the internal ring and reduced spontaneously into the abdomen. A 7x 15 cm lightweight Bard Pro Loop hernia mesh was anchored to the insertion of the rectus muscle at the pubic tubercle such that there was approximately 2 cm of tubercle overlap with Ethibon d. The inferior edge of the mesh was secured to the shelving edge of the inguinal ligament using Ethibond. Interrupted 3 0 Vicryl suture was used to anchor the superior aspect of the mesh to the conjoined tendon in several places. The tails were then reapproximated loosely around the spermatic cord. The tails of the mesh were then tucked under the external oblique aponeurosis. The repair was checked for hemostasis. The wound was irrigated with sterile saline. The external oblique aponeurosis was reapproximated in a running fashion using 3 0 Vicryl. The subcutaneous tissues were reapproximated with 3 0 Vicryl skin closed with 4 0 Monocryl followed by the application of Dermabond. At the end of the operation I ensured that both testicles were within the scrotum. The sponge instrument count at the end operation was correct. The patient emerged from anesthesia was extubated and transferred to the postoperative care unit in stable condition. A total of 30 ml of of 0.25% bupivicaine was used to infiltrate the skin. Complications: none Post-operative Condition: stable Disposition: same day surgery
[2022-11-05] MEDS: CEFAZOLIN 2 GM/100 ML PREMIX 100 ML IV (15:54)
--- NOTE | 2022-11-05 16:12 | SUR.OPER ---
Supine on padded OR bed, head on pillow, arms secured on padded arm boards at <90 degrees abduction, legs uncrossed, safety belt at thigh, tape over blanket over lower legs.
[2022-11-05] MEDS: BUPIVACAINE 0.25% (PF) VIAL 30 ML INJ (16:16)
[2022-11-05] MEDS: OXYCODONE/ACETAMINOPHEN 5/325 TABLET 1 TAB PO (17:31)
[2022-11-05] MEDS: METOCLOPRAMIDE 10 MG/2 ML INJ IV (17:31)
== END 2022-11-05 18:25 | disposition home or self-care (01) ==
PROVIDERS: Surgery; PCP Family Medicine; Referring Provider Surgery; Visit Provider Anesthesiology
PROC: (CPT 49505; principal; 2022-11-05 15:30)
DX: K40.90 Unilateral inguinal hernia, without obstruction or gangrene, not specified as recurrent (principal)
CPT/HCPCS: 49505; J0690; J1100; J2405; J2765; J3010

== ENCOUNTER → 2023-12-16 13:42 | Outpatient (CLI) | payer MEDICARE, SELFPAY ==
[2023-12-19 11:10] LABS: Fecal Immunochemical Test Negative (Negative)
== END ==
PROVIDERS: PCP Family Medicine; Referring Provider Family Medicine; Visit Provider Family Medicine
DX: Z12.11 Encounter for screening for malignant neoplasm of colon (principal)
CPT/HCPCS: 82274

== ENCOUNTER → 2024-06-07 10:49 | Outpatient (CLI) | payer MEDICARE, SELFPAY | LOC: PHYS 10:51 | PROVIDERS: Family Provider Family Medicine; PCP Family Medicine; Referring Provider Family Medicine; Visit Provider Family Medicine | DX: R20.0 Anesthesia of skin (principal); G56.02 Carpal tunnel syndrome, left upper limb; M19.041 Primary osteoarthritis, right hand; M19.042 Primary osteoarthritis, left hand | CPT/HCPCS: 95885; 95886; 95910 ==

== ENCOUNTER 2024-08-01 13:41 | Emergency (ER) | payer MEDICARE, SELFPAY ==
[2024-08-01 13:52] VITALS: BP 173/92; PULSE 72; RESP 16; TEMP 36.8; O2SAT 97; BMI 29.5
--- NOTE | 2024-08-01 14:40 | ED.GIBLEED ---
HPI - GI Bleed General Chief complaint: GI Bleed Stated complaint: Rectal Bleeding Time Seen by Provider: 08/01/24 14:28 Source: patient Mode of arrival: Ambulatory History of Present Illness HPI Narrative: Patient is a 79-year-old male past medical history of hyperlipidemia presenting from home for evaluation of rectal bleeding. He says that yesterday he had a bowel movement and noticed some blood/clot after he wiped. States that he is not having any other symptoms such as headache visual disturbances chest pain shortness breath fever chills nausea vomiting abdominal pain or any other GI/ symptoms time. States that a proximally 3-4 weeks ago had a similar symptom that self resolved. He also states that he has a history of hematuria but is currently seen urology for this has a cystoscopy scheduled. States he does have a history of internal hemorrhoids. Related Data Home Medications ?Medication ?Instructions ?Recorded ?Confirmed cholecalciferol (vitamin D3) 125 ##0 05/20/17 02/23/24 mcg (5,000 unit) capsule Previous Rx's ?Medication ?Instructions ?Recorded celecoxib 200 mg capsule (Celebrex) 200 mg PO BID #20 caps 11/05/22 tadalafil 20 mg tablet (Cialis) 20 mg PO DAILY PRN sexual activity 02/03/23 #30 tabs Allergies Allergy/AdvReac Type Severity Reaction Status Date / Time No Known Drug Allergies Allergy Verified 08/01/24 13:53 Review of Systems Review of Systems Narrative: General: Denies fever, chills, weight loss HEENT: Denies headache, eye drainage, eye irritation, head trauma, sore throat, voice change Cardiovascular: Denies any chest pain, palpitations, tachycardia Respiratory: Denies any shortness of breath, cough, wheeze, stridor GI/: Positive bright red blood per rectum Denies any abdominal pain, nausea, vomiting, diarrhea, melanotic stools, urinary frequency, urinary retention, dysuria, hematuria MSK: Denies any joint pain, muscle pains, swelling Skin: Denies any rashes, lesions, discoloration Neuro: Denies any headache, lightheadedness, dizziness, fainting, weakness Psych: Denies SI/HI Patient History Medical History (Updated 08/01/24 @ 15:41 by Taiwo Good DO) Colon cancer screening Palpitations Vitamin D deficiency Elevated blood pressure reading Carpal tunnel syndrome of left wrist Prostate cancer Sinusitis Kidney stones (11/2016) Hernia (~2013) Psoriatic arthritis (Unknown) Depression (2009) Psoriasis (1957) Osteoarthritis (2013) Chickenpox (~1956) Elevated PSA (2016) Colon polyps (2014) Surgical History Status post appendectomy (1955) History of tonsillectomy (1967) Status post hernia repair (07/2014) Family History Father Hyperlipidemia Mother Cancer Social History household members: none Smoking Status: Never smoker Smoking Status: Never smoker alcohol intake frequency: 0-2 drinks per day Alcohol type: wine Exam Narrative Exam Narrative: General: Cooperative, well-developed, not in acute distress HEENT: Normocephalic, atraumatic, PERRLA, normal sclera, eyelids normal Neck: Active full range of motion, atraumatic Chest: Normal to inspection, negative crepitus, no overlying erythema ecchymosis Respiratory: Normal respiratory effort, not in acute respiratory distress, clear to auscultation bilaterally negative cough, wheeze, tachypnea, rhonchi, rales Cardiology: Regular rate rhythm negative gallop, murmur, rubs GI/: No tenderness to palpation, soft, non rigid, normal to inspection, Hemoccult positive, hemorrhoid noted, no anal fissure MSK: Full active range of motion in all 4 extremities, atraumatic, no tenderness to palpation of any bony prominences Skin: No rashes or lesions noted Neuro: Alert awake oriented x3, moves all 4 extremities spontaneously, cranial nerves intact, able to answer all questions appropriately follows commands appropriately Psych: Cooperative, negative suicidal or homicidal ideations Initial Vital Signs Initial Vital Signs: Vital Signs Temperature 98.2 F 08/01/24 13:52 Pulse Rate 72 08/01/24 13:52 Respiratory Rate 16 08/01/24 13:52 Blood Pressure 173/92 H 08/01/24 13:52 Pulse Oximetry 97 08/01/24 13:52 Oxygen Delivery Method Room Air 08/01/24 13:52 Course Orders Ordered: ED Orders 08/01/24 14:40 Complete Blood Count AUTO DIFF Stat Comprehensive Metabolic Panel Stat PTT Partial Thromboplastin [place] Stat Prothrombin Time INR Stat Ondansetron HCl (Ondansetron 4 Mg/2 Ml Inj) 4 mg IV NOW PRN PRN Reason: Nausea And Vomiting Ondansetron HCl (Ondansetron 4 Mg Odt) 4 mg PO NOW PRN PRN Reason: Nausea And Vomiting Vital Signs Vital signs: Vital Signs - 8 hr 08/01/24 13:52 08/01/24 14:56 08/01/24 15:00 Temperature 98.2 F Pulse Rate 72 61 73 Respiratory Rate 16 16 Blood Pressure 173/92 H 166/98 H Pulse Oximetry 97 96 98 Oxygen Delivery Method Room Air MDM - GI Bleed Differential Diagnosis Differential diagnosis: Likely hemorrhoids, infectious diarrhea, Lower gastrointestinal hemorrhage, hematochezia, anal fissure and other (Anemia) Lab Data 08/01/24 14:40 08/01/24 14:40 Labs: Lab Results 08/01/24 Range/Units 14:40 WBC 4.9 (4.5-11.0) X10^3/uL RBC 4.38 L (4.5-5.9) X10^6/uL Hgb 13.4 L (13.5-17.5) g/dL Hct 39.4 L (41-53) % MCV 89.8 (80-100) fL MCH 30.6 (26-34) PG MCHC 34.1 (30-36) % RDW 13.4 (11.6-14.8) % Plt Count 212 (150-400) X10^3/uL Neut % (Auto) 61.2 (50-75) % Lymph % (Auto) 25.7 (25-40) % [place] % (Auto) 9.9 (3-14) % Eos % (Auto) 2.7 (2-4) % Baso % (Auto) 0.5 (0-2) % Neut # (Auto) 3000 (5941-0363) /uL Lymph # (Auto) 1300 (9253-4858) /uL [place] # (Auto) 500 (0-900) /uL Eos # (Auto) 100 (0-450) /uL Baso # (Auto) 0 (0-100) /uL PT 11.7 (9.4-12.5) SECONDS INR 1.0 (0.9-1.3) APTT 32 (25.1-36.5) SECONDS Sodium 137 (137-145) mmol/L Potassium 4.2 (3.4-5.1) mmol/L Chloride 107 (98-107) mmol/L Carbon Dioxide 24 (22-32) mmol/L BUN 15 (9-20) mg/dL Creatinine 0.84 (0.66-1.25) mg/dL Estimated GFR > 60 (>60) mL/min BUN/Creatinine Ratio 17.9 (6-22) Glucose 86 (70-99) mg/dL Calcium 8.8 (8.4-10.2) mg/dL Total Bilirubin 0.7 (0.2-1.3) mg/dL AST 32 (17-59) IU/L ALT 35 (<50) IU/L Alkaline Phosphatase 70 (38-126) U/L Total Protein 7.2 (6.3-8.2) g/dL Albumin 4.2 (3.5-5.0) g/dL Globulin 3.0 (1.7-4.1) g/dL Albumin/Globulin Ratio 1.4 (1.0-2.8) Point of Care Testing Stool Occult Blood Positive MDM Narrative Medical decision making narrative: 79-year-old male with a past medical history hyperlipidemia hemorrhoids presenting from home for evaluation of lower GI bleed. He states that he had this episode of proximally month ago self resolved, he states that he has also been having some hematuria but has a scheduled cystoscopy by his urologist in the next few days. Patient denies any blood thinners denies any pain with bowel movement. On exam patient noted to have hemorrhoid was Hemoccult positive. Hemoglobin stable 13.4, vital signs stable, patient with an open score of 8, therefore patient low risk, was instructed to follow up with GI for colonoscopy, he verbalized understanding of this and agrees to being discharged home with outpatient follow up Discharge Plan Departure Patient Disposition: Home Clinical Impression: Acute lower GI bleeding Instructions: DI for Hemorrhoids Activity Restrictions/Additional Instructions: Please follow up with Gastroenterology and your primary care doctor Please read the discharge instructions sheet carefully and bring all papers to all doctor follow-up visits, as it may contain information that your doctor may want to see. Disease processes change and evolve, if your symptoms worsen or if you develop any new symptoms that are concerning to you please return for evaluation. Your evaluation today does not show any evidence of any life-threatening/serious illnesses requiring admission to the hospital or surgery. Please follow-up with your doctor for re-evaluation in approximately 1 day. Seek immediate medical attention for any worrisome symptoms. *If you do not have a primary care provider please contact the [facility] Resource line at [phone]. They will ask some questions about your medical history and help get you set up with a doctor in the community. Prescriptions: No Action cholecalciferol (vitamin D3) 5,000 UNIT capsule Qty: 0 tadalafil [Cialis] 20 mg tablet 20 mg PO DAILY PRN (Reason: sexual activity) Qty: 30 3RF Rx Instructions: administer approximately 30min before sexual activity; do not use more than 1 dose per 24hrs celecoxib [Celebrex] 200 mg capsule 200 mg PO BID Qty: 20 0RF Referrals: Ephraim Castro MD [Non-Staff, Internal Medicine] Referral Note: Lower GI bleeding Justin Foley MD [Primary Care Provider, Family Practice] Stand Alone Forms: Patient Portal/API
[2024-08-01 14:56] VITALS: PULSE 61; O2SAT 96
[2024-08-01 15:00] VITALS: BP 166/98; PULSE 73; RESP 16; O2SAT 98
--- NOTE | 2024-08-01 15:01 | PC.NURSE ---
Dr Good performed guaiac test.
[2024-08-01 15:04] LABS: Add Manual Diff / Slide Review NO; Basophils Absolute Auto 0 /uL (0-100); Basophils Percent Auto 0.5 % (0-2); Eosinophils Absolute Auto 100 /uL (0-450); Eosinophils Percent Auto 2.7 % (2-4); Hematocrit 39.4 % (41-53); Hemoglobin 13.4 g/dL (13.5-17.5); Lymphocytes Absolute Auto 1300 /uL (1100-4500); Lymphocytes Percent Auto 25.7 % (25-40); Mean Corpuscular HGB Conc 34.1 % (30-36); Mean Corpuscular Hemoglobin 30.6 PG (26-34); Mean Corpuscular Volume 89.8 fL (80-100); Monocytes Absolute Auto 500 /uL (0-900); Monocytes Percent Auto 9.9 % (3-14); Neutrophils Absolute Auto 3000 /uL (1500-7000); Neutrophils Percent Auto 61.2 % (50-75); Platelet Count 212 X10^3/uL (150-400); Red Blood Cell Count 4.38 X10^6/uL (4.5-5.9); Red Cell Distribution Width 13.4 % (11.6-14.8); White Blood Cell Count 4.9 X10^3/uL (4.5-11.0)
[2024-08-01 15:13] LABS: Prothrombin Time 11.7 SECONDS (9.4-12.5)
[2024-08-01 15:15] LABS: PTT Partial Thromboplastin Tim 32 SECONDS (25.1-36.5)
[2024-08-01 15:16] LABS: Alanine Aminotransferase 35 IU/L (<50); Albumin 4.2 g/dL (3.5-5.0); Albumin Globulin Ratio 1.4 (1.0-2.8); Alkaline Phosphatase 70 U/L (38-126); Aspartate Aminotransferase 32 IU/L (17-59); BUN Creatinine Ratio 17.9 (6-22); Bilirubin Total 0.7 mg/dL (0.2-1.3); Blood Urea Nitrogen 15 mg/dL (9-20); Calcium 8.8 mg/dL (8.4-10.2); Carbon Dioxide 24 mmol/L (22-32); Chloride 107 mmol/L (98-107); Estimated Glomerular Filt Rate > 60 mL/min (>60); Glucose 86 mg/dL (70-99); HEMOLYSIS < 15 (0-50); Potassium 4.2 mmol/L (3.4-5.1); Sodium 137 mmol/L (137-145); Total Protein 7.2 g/dL (6.3-8.2)
[2024-08-01 15:30] VITALS: PULSE 56; O2SAT 98
[2024-08-01 15:43] VITALS: BP 161/95; BP 175/109; PULSE 67; RESP 16; O2SAT 97
== END 2024-08-01 15:56 | disposition home or self-care (01) ==
PROVIDERS: Emergency Provider Student in an Organized Health Care Education/Training Program; Family Provider Family Medicine; PCP Family Medicine
DX: K62.5 Hemorrhage of anus and rectum (principal); R31.9 Hematuria, unspecified
CPT/HCPCS: 36415; 80053; 82272; 85025; 85610; 85730; 99283

== ENCOUNTER → 2024-10-16 12:43 | Outpatient (CLI) | payer MEDICARE, SELFPAY ==
[2024-10-16 13:02] LABS: Add Manual Diff / Slide Review NO; Hematocrit 43.1 % (41-53); Hemoglobin 14.5 g/dL (13.5-17.5); Lymphocytes Absolute Auto 1200 /uL (1100-4500); Mean Corpuscular HGB Conc 33.7 % (30-36); Mean Corpuscular Hemoglobin 30.7 PG (26-34); Mean Corpuscular Volume 91.0 fL (80-100); Platelet Count 187 X10^3/uL (150-400)
[2024-10-16 13:31] LABS: Alanine Aminotransferase 23 IU/L (<50); Albumin 4.4 g/dL (3.5-5.0); Albumin Globulin Ratio 1.5 (1.0-2.8); Alkaline Phosphatase 71 U/L (38-126); Blood Urea Nitrogen 17 mg/dL (9-20); Calcium 8.9 mg/dL (8.4-10.2); Carbon Dioxide 23 mmol/L (22-32); Chloride 108 mmol/L (98-107); Cholesterol 231 mg/dL (140-199); Estimated Glomerular Filt Rate > 60 mL/min (>60); Globulin 2.9 g/dL (1.7-4.1); Glucose 93 mg/dL (70-99); HDL Cholesterol 62 mg/dL (40-60); HEMOLYSIS < 15 (0-50); Potassium 4.5 mmol/L (3.4-5.1); Sodium 138 mmol/L (137-145); Total Protein 7.3 g/dL (6.3-8.2); Triglycerides 128 mg/dL (35-150)
[2024-10-16 14:00] LABS: TSH w/ Reflex to FT4 0.94 uIU/mL (0.47-4.68)
[2024-10-16 14:17] LABS: Microalbumi Creatinin Ratio Ur 14.0 ug/mg CR (<30)
[2024-10-16 14:36] LABS: Vitamin D 25 Hydroxy (D3) 86.1 ng/mL (30.0-100.0)
[2024-10-23 01:38] LABS: Percent Free Testosterone 3.55 % (1.50-4.20)
== END ==
PROVIDERS: Family Provider Family Medicine; PCP Family Medicine; Referring Provider Family Medicine; Visit Provider Family Medicine
DX: R20.0 Anesthesia of skin (principal); E78.5 Hyperlipidemia, unspecified; E55.9 Vitamin D deficiency, unspecified; R97.20 Elevated prostate specific antigen [PSA]; R03.0 Elevated blood-pressure reading, without diagnosis of hypertension; R00.2 Palpitations; Z12.11 Encounter for screening for malignant neoplasm of colon; F32.9 Major depressive disorder, single episode, unspecified; K92.1 Melena; M19.041 Primary osteoarthritis, right hand; E54 Ascorbic acid deficiency; C61 Malignant neoplasm of prostate; N20.0 Calculus of kidney; M19.042 Primary osteoarthritis, left hand
CPT/HCPCS: 36415; 80053; 80061; 82043; 82172; 82180; 82306; 82570; 84402; 84403; 84443; 85025